=== PATIENT | male | born 1955 | race Caucasian/White ===

== ENCOUNTER 2018-09-20 11:17 | Outpatient (CLI) | payer MEDICARE, MEDICAID ==
--- NOTE | 2018-09-20 15:01 | MRI ---
FCervical spine MRI without contrast: 09/20/2018 COMPARISON: None HISTORY: Chronic neck pain with headaches, radiculopathy, cervical stenosis TECHNIQUE: Multiplanar multisequence MR imaging of the cervical spine obtained without contrast. FINDINGS: The sagittal STIR imaging demonstrates no focal area of osseous marrow edema. The C1 ring and the occipital condyles are fused. There is mild associated degenerative change involv ing the atlantoaxial interspace. C2-3: There is mild disc space narrowing and disc desiccation. Posterior osteophyte noted in the left paracentral region. No associated central canal stenosis. Bilateral facet and uncovertebral osteophy te formation noted, left greater than right. Mild bilateral neural foraminal stenosis, left greater t abdul right. C3-4: There is disc space narrowing with disc desiccation and disc bulge partially effacing the ventr al thecal sac. There is associated posterior osteophyte. A mild/moderate degree of associated central canal stenosis. Prominent bilateral facet and uncovertebral osteophyte formation, left greater than right, with moderate/severe right and severe left neural foraminal stenosis. C4-5: There is disc space narrowing, disc desiccation, and disc osteophyte complex effacing the ventr al thecal sac and abutting the ventral aspect of the cord with a moderate/severe degree of central ca nal stenosis. There is bilateral facet and uncovertebral osteophyte formation with severe left and mo derate/severe right neural foraminal stenosis. C5-6: There is disc space narrowing and disc desiccation with mild disc bulge and mild central canal stenosis. Prominent facet and uncovertebral osteophyte formation noted bilaterally with moderate righ t and severe left neural foraminal stenosis. C6-7: Disc desiccation and disc bulge/posterior osteophyte with effacement of ventral thecal sac and mild central canal stenosis. Facet and uncovertebral osteophyte formation noted bilaterally with mode rate right and severe left neural foraminal stenosis. C7-T1: Anterolisthesis measures 4 mm. Disc space narrowing and disc desiccation with mild disc bulge. Bilateral facet and uncovertebral osteophyte formation. Mild right and severe left neural foraminal stenosis. No focal area of abnormal signal intensity is identified within the cervical cord. IMPRESSION: Severe degenerative changes of the cervical spine as detailed above.
== END 2018-09-20 11:18 | disposition home or self-care (01) ==
LOC: SCSMRI 11:17
PROVIDERS: ATTEND Orthopaedic Surgery Hand Surgery
DX: M48.02 Spinal stenosis, cervical region (principal); M47.22 Other spondylosis with radiculopathy, cervical region
CPT/HCPCS: 72141

== ENCOUNTER 2019-03-20 17:56 | Inpatient (IN) | payer MEDICARE, MEDICAID ==
[2019-03-20 19:01] LABS: #Basophils 0.1 thou/uL (0.0-0.2); #Eosinphils 0.3 thou/uL (0.0-0.7); #Lymphocytes 2.1 thou/uL (1.20-3.40); #Monocytes 0.7 thou/uL (0.11-0.59); #Neutrophils 6.5 thou/uL (1.40-6.50); %Basophils 0.8 % (0.0-1.0); %Eosinophils 3.3 % (0.0-10.0); Hemoglobin 11.5 g/dL (14.0-18.0); Mean Corpuscular Volume 94.1 fL (78.0-98.0); Mean Platelet Volume 8.6 fL (7.4-10.4); Platelet Count 247 thou/uL (130-400); RBC Distribution Width 11.3 % (11.5-14.5); Red Blood Cell (RBC) Count 3.59 mill/uL (4.70-6.10); White Blood Cell (WBC) Count 9.7 thou/uL (4.8-10.8)
--- NOTE | 2019-03-20 19:11 | CT ---
CT BRAIN NONCONTRAST: DATE: 03/20/2019 HISTORY: 64-year-old male with headache, dizziness, and generalized weakness. FINDINGS: There is no evidence of acute intra-axial or extra-axial hemorrhage. There is no midline shift or any other mass effect. There is no extra-axial fluid collection. There is no evidence of obstructive hydrocephalus. Calvarium is intact. IMPRESSION: No acute intracranial findings.
[2019-03-20] MEDS ORDERED: Ketorolac Tromethamine 30 MG/ML VIAL ONE (19:15)
[2019-03-20] MEDS ORDERED: Metoclopramide HCl 10 MG/2 ML VIAL ONE (19:15)
[2019-03-20] MEDS ORDERED: diphenhydrAMINE 50 MG/ML VIAL ONE (19:15)
[2019-03-20 19:22] LABS: ALT (SGPT) 11 U/L (8-55); AST (SGOT) 12 U/L (5-34); Albumin 3.9 g/dL (3.4-4.8); Alkaline Phosphatase 69 U/L (40-110); Anion Gap 13 mmol/L (10-20); BUN (Urea Nitrogen) 39 mg/dL (8.4-25.7); Bilirubin, Total 0.4 mg/dL (0.2-1.2); Calc. Creatinine Clearance 0 mL/min (70-130); Calcium 8.8 mg/dL (7.8-10.44); Carbon Dioxide 22 mmol/L (23-31); Chloride 107 mmol/L (98-107); Estimated GFR-MDRD 23; Globulin 3.1 g/dL (2.4-3.5); Glucose 268 mg/dL (80-115); Potassium 5.1 mmol/L (3.5-5.1); Sodium 137 mmol/L (136-145)
[2019-03-20] MEDS ORDERED: Diazepam 10 MG/2 ML SYRINGE ONE (20:34)
[2019-03-20 23:08] LABS: Bacteria/HPF None Seen HPF (None Seen); Bilirubin Negative (Negative); Blood, Urine Negative (Negative); Clarity Clear (Clear); Glucose, Urine (Dipstick) Greater than 1000 mg/dL (Negative); Leukocyte Negative Leu/uL (Negative); Nitrite Negative (Negative); Protein, Urine (Dipstick) 30 mg/dL (Neg-Trace); RBC/HPF 0-3 HPF (0-3); Squamous Epithelial None Seen HPF (0-3); Urobilinogen Normal mg/dL (Less than 2); WBC/HPF 0-3 HPF (0-3)
[2019-03-21] MEDS ORDERED: Ondansetron ODT 4 MG TAB SL PRN (00:08)
[2019-03-21] MEDS ORDERED: Ondansetron PF 4 MG/2 ML Vial IVP PRN ×2 (00:08→04:11)
[2019-03-21] MEDS ORDERED: hydrALAZINE 20 MG/ML VIAL SLOW IVP PRN (01:00)
[2019-03-21] MEDS ORDERED: Acetaminophen 325 MG TAB PO PRN (04:11)
[2019-03-21] MEDS ORDERED: Acetaminophen 650 MG Suppository PR PRN (04:11)
[2019-03-21] MEDS ORDERED: Senokot S 8.6-50 MG TAB PO PRN (04:11)
[2019-03-21] MEDS ORDERED: Ondansetron ODT 4 MG TAB PO PRN (04:11)
[2019-03-21] MEDS ORDERED: HumaLOG 300 UNITS/3 ML VIAL SC PRN ×2 (04:30)
[2019-03-21] MEDS ORDERED: Dextrose 50% Abboject 50 ML SYRINGE SLOW IVP PRN (04:30)
[2019-03-21] MEDS ORDERED: Dextrose 5% in Water 1,000 ML IV PRN (04:30)
[2019-03-21] MEDS: Sodium Chloride 0.9% 1,000 ML IV SCH (04:47)
[2019-03-21 05:08] LABS: Amphetamine Not Detected (NotDetected); Barbiturates Screen Not Detected (NotDetected); Benzodiazepine Screen Not Detected (NotDetected); Cocaine Metabolite Screen Not Detected (NotDetected); Medtox Control Line Valid? VALID (VALID); Medtox Reader # READER 4; Methadone Not Detected (NotDetected); Methamphetamine Not Detected (NotDetected); Opiate Screen Not Detected (NotDetected); Oxycodone Screen Not Detected (NotDetected); Phencyclidine (PCP) Not Detected (NotDetected); THC/Cannabinoid Screen Not Detected (NotDetected); Tricyclic Screen Not Detected (NotDetected)
[2019-03-21 05:23] LABS: #Basophils 0.1 thou/uL (0.0-0.2); #Eosinphils 0.3 thou/uL (0.0-0.7); #Lymphocytes 2.5 thou/uL (1.20-3.40); #Monocytes 0.7 thou/uL (0.11-0.59); #Neutrophils 4.3 thou/uL (1.40-6.50); %Eosinophils 4.4 % (0.0-10.0); %Lymphocytes 31.8 % (21.0-51.0); %Monocytes 8.5 % (0.0-10.0); %Neutrophils 54.4 % (42.0-75.0); Hemoglobin 11.4 g/dL (14.0-18.0); Mean Corpuscular HGB CONC 33.5 g/dL (32.0-36.0); Mean Corpuscular Hemoglobin 32.4 pg (27.0-31.0); Mean Corpuscular Volume 96.6 fL (78.0-98.0); Mean Platelet Volume 8.2 fL (7.4-10.4); Platelet Count 229 thou/uL (130-400); RBC Distribution Width 11.2 % (11.5-14.5); Red Blood Cell (RBC) Count 3.53 mill/uL (4.70-6.10)
--- NOTE | 2019-03-21 05:25 | HP ---
PRIMARY CARE PHYSICIAN: Cipriano Haque MD CHIEF COMPLAINT: Dizziness. HISTORY OF PRESENT ILLNESS: Mr. Kingsley is a pleasant 64-year-old gentleman, who presented to the emergency department yesterday due to complaints of dizziness. The patient states he was making lunch when it came on suddenly. He reports feeling a "spinning sensation." The patient states he has had long issues with chronic neck pain due to cervical spine degenerative disk disease. The patient states he has never experienced any dizziness before. He reports having headache to the right side of his head with some blurred vision. He apparently had difficulty walking due to the dizziness and had to lower himself to the ground. He was able to get himself to bed and fell asleep. He continued to have dizziness and difficulty walking when he woke, which prompted him to come in to the emergency department. Denies having any associated chest pain, palpitations or shortness of breath. His neck pain has not been worse than usual. He denies having any recent falls or injuries. In the emergency department, he was given Reglan, Benadryl and Toradol. He is given 1 L of normal saline and also 5 mg of Valium IV. Investigations included laboratory studies, which were notable for a low hemoglobin of 11.5, no previous labs on file to compare to. He had evidence of renal failure. Unclear if any acute exacerbation as we do not have any previous to compare to. The patient states he does have a known history of chronic kidney disease. BUN was 39, creatinine was 2.75, and GFR was 23. His glucose was elevated at 268. LFTs unremarkable. Alkaline phosphatase 69. Urinalysis was done, which showed 30 of protein and greater than 1000 glucose, otherwise unremarkable. Imaging was obtained with a CT of the brain, which showed no acute intracranial findings. PAST MEDICAL HISTORY: 1. Chronic neck pain. 2. Cervical spine degenerative disk disease. 3. Hypertension. 4. Diabetes mellitus. 5. Neuropathy. 6. Carpal tunnel. 7. COPD. PAST SURGICAL HISTORY: Left arm surgery. SOCIAL HISTORY: The patient denies any alcohol consumption, tobacco use or illicit drug use. ALLERGIES: NO KNOWN DRUG ALLERGIES. CURRENT MEDICATIONS: Metoprolol tartrate. To be confirmed. PHYSICAL EXAMINATION: GENERAL: The patient is found resting comfortably in bed. He is in no acute distress. VITAL SIGNS: Temperature 97.8, pulse 63, respirations 16, O2 sat 99% on room air, and blood pressure 186/82. HEENT: Normocephalic and atraumatic. Pupils are equal, round, and reactive to light. Extraocular movements intact. No blurred vision. Oropharynx is clear. NECK: Supple. LUNGS: Clear to auscultation bilaterally. CARDIAC: Regular rate and rhythm. ABDOMEN: Soft, nontender, and nondistended. Normoactive bowel sounds present. EXTREMITIES: No lower leg swelling or edema. NEUROLOGIC: Alert and oriented x3. Speech normal. Facial movements normal. Facial sensation intact. No neuro deficits on exam. INVESTIGATIONS: As mentioned above in HPI. IMPRESSION AND PLAN: Mr. Kingsley is a very pleasant 64-year-old gentleman, who has been referred for management of the following. 1. Sudden-onset dizziness. Symptoms have resolved. CT of the brain unremarkable. Due to underlying renal failure, unable to obtain a CT angiogram of the head and neck. We will obtain carotid Dopplers and an MRI of the brain. The patient had no slurred speech, but did have what sounds like ataxia and true dizziness. This has resolved. We will continue to monitor. We will consult Neurology. The patient is without any history of previous strokes. Orthostatic BPs requested. Urine drug screen requested as well. We will also obtain echo. 2. Chronic neck pain. The patient has degenerative cervical spine disease. Scheduled to undergo MRI of the cervical spine. The ER physician has also consulted Neurosurgery. MRI of cervical spine done in September 2018 showed severe degenerative changes of the cervical spine. 3. Renal failure. Unclear if at baseline or with acute exacerbation of chronic kidney disease. We will give IV fluids. Continue to monitor renal function. 4. Hypertension. The patient with elevated blood pressure of 186/82 on arrival to the floor, therefore, given a dose of hydralazine. Blood pressure under control at present. Continue to monitor. Resume home medications once verified. 5. Diabetes mellitus. Resume home medications once verified. For now, we will cover with insulin sliding scale and monitor glucose. 6. Code status full. His surrogate decision maker is his mother, Mari Sharma. 7. Gastrointestinal prophylaxis with famotidine. 8. Deep venous thrombosis prophylaxis with mechanical SCDs. The patient's case to be discussed with attending for further recommendations. Job ID: [id number]
[2019-03-21 05:46] LABS: Anion Gap 13 mmol/L (10-20); BUN (Urea Nitrogen) 36 mg/dL (8.4-25.7); Calc. Creatinine Clearance 39 mL/min (70-130); Calcium 8.5 mg/dL (7.8-10.44); Carbon Dioxide 18 mmol/L (23-31); Chloride 113 mmol/L (98-107); Estimated GFR-MDRD 28; Glucose 137 mg/dL (80-115); Potassium 4.6 mmol/L (3.5-5.1); Sodium 139 mmol/L (136-145)
[2019-03-21 07:03] VITALS: BMI 26.2
[2019-03-21] MEDS ORDERED: Metoprolol Tartrate 25 MG TAB PO SCH (09:00)
[2019-03-21] MEDS: Famotidine/PF 20 mg/2ml Vial SLOW IVP SCH ×2 (09:20→22:00)
--- NOTE | 2019-03-21 12:51 | MRI ---
MRI Brain WO Con: 03/21/2019 4:04 AM CLINICAL HISTORY: Headache and dizziness with generalized weakness. COMPARISON: Head CT previous day FINDINGS: Extra axial spaces: Normal in size and morphology for the patient's age. Acute infarction: None. Ventricular system: Normal in size and morphology for the patient's age. Basal cisterns: Normal. Cerebral parenchyma: Microvascular ischemic changes. Midline shift: None. Cerebellum: Normal. Brainstem: Normal. Paranasal sinuses:Scattered mucosal thickening. IMPRESSION:No acute intracranial abnormality.
--- NOTE | 2019-03-21 13:01 | MRI ---
MRI Cervical spine without contrast: HISTORY: Headache and dizziness COMPARISON: 09/20/2018 FINDINGS: The craniocervical junction is maintained. No significant cord signal abnormality. C1-2:No significant stenosis. C2-3:Left asymmetric disc osteophyte results in mild left foraminal narrowing. Slight effacement of v entral thecal sac. No high-grade right foraminal stenosis. C3-4:Broad-based disc osteophyte with moderate central canal stenosis and associated cord flattening. There is bilateral uncinate process and facet hypertrophy with severe left and moderate to severe right neural foraminal stenosis. C4-5:Broad-based disc osteophyte results in moderate to severe central canal stenosis and moderate co rd compression. There is bilateral uncinate process and facet hypertrophy with severe left and moderate to severe right neural foraminal stenosis. C5-6:Broad-based left asymmetric disc osteophyte with moderate to severe central canal stenosis and m oderate cord compression. There is bilateral uncinate process, left greater than right, and bilateral facet hypertrophy with severe left and moderate to severe right neural frontal stenosis. C6-7: Left asymmetric broad-based disc osteophyte with moderate central canal stenosis and ventral co rd effacement more notable to the left of midline. There is bilateral uncinate process and facet hypertrophy with severe left and moderate right neural foraminal stenosis. C7-T1:Grade 1 spondylolisthesis with associated disc osteophyte complex producing mild central canal stenosis. There is mild bilateral neural foraminal stenosis. Bilateral facet osteophytes is present left greater than right, moderate in degree. IMPRESSION: Redemonstration of severe multilevel cervical spine degenerative change, as outlined above.
--- NOTE | 2019-03-21 18:09 | ULT ---
CAROTID DOPPLER 03/21/19 PROVIDED CLINICAL HISTORY: TIA. FINDINGS: Rcystal scale and color Doppler sonography with spectral analysis was performed of the extracranial car otid system bilaterally. There is no evidence for a hemodynamically significant internal carotid ta ry stenosis by peak systolic velocity or ratio criteria. Antegrade flow is seen in the right vertebra l artery. The left vertebral artery is not visualized. IMPRESSION: No sonographic evidence for a hemodynamically significant internal carotid artery stenosis. POS: MARGARITO
--- NOTE | 2019-03-21 18:59 | PDOC.HOSPP ---
- Subjective Encounter Date: 03/21/19 Encounter Time: 18:30 Subjective: f/u for weakness, dizziness and difficulty ambulating. Work up negative currently except for spinal DJD on imaging. - Objective Vital Signs & Weight: Vital Signs (12 hours) Temp Pulse Resp BP Pulse Ox 03/21/19 15:51 98.2 F 52 L 17 151/72 H 94 L 03/21/19 11:11 97.8 F 56 L 20 163/72 H 100 Weight Admit Weight 199 lb 3.2 oz Weight 199 lb 3.2 oz I&O: 03/20/19 03/21/19 03/22/19 06:59 06:59 06:59 Intake Total 480 Output Total 375 550 Balance -375 -70 Result Diagrams: 03/21/19 05:16 03/21/19 05:16 Additional Labs: Accuchecks 03/21/19 03/21/19 03/21/19 17:03 11:16 04:06 POC Glucose 159 H 127 H 134 H Laboratory Tests 03/20/19 03/20/19 03/21/19 18:52 18:52 05:16 Hgb 11.5 L BUN 39 H Creatinine 2.75 H B-Natriuretic Peptide 48.7 Radiology Reviewed by me: Yes (MRI brain - neg, Carotid sono - neg) EKG Reviewed by me: Yes (Tele - SR) Hospitalist ROS - Medication Medications: Active Medications Generic Name Dose Route Start Last Admin Trade Name Freq PRN Reason Stop Dose Admin Famotidine 20 mg 03/21/19 09:00 03/21/19 09:20 Pepcid SLOW IVP 20 mg Q12HR JOSEPH Administration Sodium Chloride 1,000 mls @ 75 mls/hr 03/21/19 04:15 03/21/19 04:47 Normal Saline 0.9% IV 1,000 mls .[id number] JOSEPH Administration Metoprolol Tartrate 25 mg 03/21/19 09:00 03/21/19 09:20 Lopressor PO 25 mg DAILY JOSEPH Administration - Exam General Appearance: NAD, awake alert Eye: PERRL, anicteric sclera ENT: normocephalic atraumatic, no oropharyngeal lesions Neck: supple, symmetric, no JVD, no thyromegaly Heart: RRR, no murmur, no gallops, no rubs, normal peripheral pulses Respiratory: CTAB, no wheezes, no rales, no ronchi, normal chest expansion Gastrointestinal: soft, non-tender, non-distended, normal bowel sounds, no palpable masses Extremities: no cyanosis, no clubbing, no edema Skin: normal turgor, no lesions Neurological: cranial nerve grossly intact, no new deficit Musculoskeletal: normal tone Musculoskeletal - other findings: muscle atrophy of thenar eminence bilat Psychiatric: normal affect, A&O x 3 Hosp A/P (1) Vertigo Code(s): R42 - DIZZINESS AND GIDDINESS Status: Acute Plan: Likely positional vertigo, consider trial of Meclizine, IVF's (2) DM II (diabetes mellitus, type II), controlled Code(s): E11.9 - TYPE 2 DIABETES MELLITUS WITHOUT COMPLICATIONS Status: Chronic Plan: ISS, serial accuchecks (3) TANISHA (acute kidney injury) Code(s): N17.9 - ACUTE KIDNEY FAILURE, UNSPECIFIED Status: Acute Plan: Improved, avoid nephrotoxic meds and limit contrast exposure (4) CKD (chronic kidney disease) stage 4, GFR 15-29 ml/min Code(s): N18.4 - CHRONIC KIDNEY DISEASE, STAGE 4 (SEVERE) Status: Chronic (5) Cervical spinal stenosis Code(s): M48.02 - SPINAL STENOSIS, CERVICAL REGION Status: Chronic Plan: Outpt followup with Neurosurgery for evaluation (6) HTN (hypertension) Code(s): I10 - ESSENTIAL (PRIMARY) HYPERTENSION Status: Chronic Qualifiers: Hypertension type: essential hypertension Qualified Code(s): I10 - Essential (primary) hypertension Plan: Continue Metoprolol 25mg daily - Plan PT/OT, out of bed/ambulate, DVT proph w/SCDs Stable currently Continue IVF's another 24h OOB with PT Outpt follow up with Neurosurgery AM lab: BMP, CBC, Lipids Likely home in am
--- NOTE | 2019-03-21 23:19 | CON ---
DATE OF CONSULTATION: 03/21/2019 CONSULTING PHYSICIAN: Hospitalist Service. IMPRESSION: 1. Atypical episode of hemicranial tingling and burning with transient dizziness of uncertain etiology. 2. Hypertension. 3. Cervical spinal stenosis without evidence of myelopathy on exam. 4. Peripheral neuropathy with diffuse distal atrophy. PLAN: 1. Carotid ultrasound. 2. Aspirin 81 mg per day. 3. Neurosurgical opinion on his cervical spine. HISTORY OF PRESENT ILLNESS: Mr. Patel is a 64-year-old man, who came in after having a repeated episode of right hemicranial tingling and burning. Initial episode lasted a few minutes and he went and laid down and took a nap. When he awoke, the symptoms were gone. He got up to let his dog out and was walking through the den when he started feeling the sensation again. As he was walking to the house, he started to feel somewhat dizzy. He went down on all fours and crawled to his bedroom. He did not have any nausea or vomiting. He felt like both of his legs were a bit weak. He made it to the bedroom and asked his girlfriend to call for help. He was brought into the hospital for evaluation. His workup initially has included an MRI of the brain, which showed a very minimal amount of periventricular white matter changes without any evidence of an acute ischemic event. He was a bit hypertensive on arrival, but he has been afebrile. His tox screen was negative. His initial CT scan of the brain did not show any evidence of a bleed. He has had a repeat MRI of the cervical spine, which shows multilevel central canal stenosis without any evidence of myelomalacia. He continues to complain of feeling like his left leg is different than it used to be. He has a past history of lumbar spinal disease as well. He is not reporting any radicular pain. He has been seen by Dr. Haque and had nerve conduction studies. He was told that he had significant peripheral nerve problems. The details are not available. PAST MEDICAL HISTORY: Hypertension. ALLERGIES: NONE. SOCIAL HISTORY: Unremarkable. FAMILY HISTORY: Noncontributory. REVIEW OF SYSTEMS: Ten-system review of systems is otherwise unremarkable. PHYSICAL EXAMINATION: VITAL SIGNS: Have been stable, although he has been a bit hypertensive. GENERAL: He is a thin, middle-aged man, sitting up in the bed, in no acute distress. HEENT: Pupils are equal. Conjunctivae clear. Oropharynx clear. Cranium normocephalic and atraumatic. NECK: No lymphadenopathy. EXTREMITIES: No cyanosis or edema. There is peripheral atrophy especially in the intrinsic muscles of the hands. NEUROLOGIC: He is alert and cooperative. His speech is fluent and clear. Cranial nerves 2 through 12 are intact. Motor exam showed good strength proximally without any lateralization. He had distal weakness of the intrinsic hand muscles. Sensation was decreased in a stocking-glove distribution. Reflexes were absent in the legs. He had 1+ reflexes in the upper extremities. Plantar responses were mute. He could sit and stand independently. Echocardiogram is pending. IMAGING STUDIES: Carotid ultrasound is pending. EKG shows normal sinus rhythm. SUMMARY: This is a middle-age man, who presented with a very unusual symptoms. It is possible he could have unusual basilar TIA without evidence of ischemic damage. I would go ahead and cover him with antiplatelet therapy and complete his stroke workup. Job ID: [id number]
[2019-03-22] MEDS: Sodium Chloride 0.9% 1,000 ML IV SCH ×3 (01:38→22:06)
[2019-03-22 06:03] LABS: #Basophils 0.1 thou/uL (0.0-0.2); #Eosinphils 0.4 thou/uL (0.0-0.7); #Lymphocytes 1.7 thou/uL (1.20-3.40); #Monocytes 0.6 thou/uL (0.11-0.59); #Neutrophils 4.7 thou/uL (1.40-6.50); %Basophils 0.8 % (0.0-1.0); %Eosinophils 5.2 % (0.0-10.0); %Lymphocytes 22.9 % (21.0-51.0); %Monocytes 7.5 % (0.0-10.0); %Neutrophils 63.6 % (42.0-75.0); Hemoglobin 11.5 g/dL (14.0-18.0); Mean Corpuscular HGB CONC 34.3 g/dL (32.0-36.0); Mean Corpuscular Hemoglobin 32.8 pg (27.0-31.0); Mean Corpuscular Volume 95.8 fL (78.0-98.0); Mean Platelet Volume 8.6 fL (7.4-10.4); Platelet Count 233 thou/uL (130-400); RBC Distribution Width 11.3 % (11.5-14.5); Red Blood Cell (RBC) Count 3.49 mill/uL (4.70-6.10); White Blood Cell (WBC) Count 7.3 thou/uL (4.8-10.8)
[2019-03-22 06:22] LABS: Anion Gap 10 mmol/L (10-20); BUN (Urea Nitrogen) 28 mg/dL (8.4-25.7); Calc. Creatinine Clearance 44 mL/min (70-130); Calcium 8.4 mg/dL (7.8-10.44); Carbon Dioxide 25 mmol/L (23-31); Cardiac Risk 7.1 (Less than 4.5); Chloride 108 mmol/L (98-107); Cholesterol 184 mg/dl (< 200 Desired); Estimated GFR-MDRD 32; Glucose 211 mg/dL (80-115); HDL Cholesterol 26 mg/dL (>60 Neg Risk); LDL Cholesterol, Calculated 119 mg/dL; Potassium 4.7 mmol/L (3.5-5.1); Sodium 138 mmol/L (136-145); Triglycerides 196 mg/dL (Less than 150)
--- NOTE | 2019-03-22 08:39 | PDOC.HOSPP ---
- Subjective Encounter Date: 03/22/19 Encounter Time: 08:20 Subjective: f/u for dizziness, orthostatic hypotension with negative stroke workup. Feels ok overall but was noted orthostatic this am. No other new complaints. - Objective Vital Signs & Weight: Vital Signs (12 hours) Temp Pulse Resp BP BP BP Pulse Ox 03/22/19 08:17 97.8 F 59 L 16 154/86 H 132/86 170/85 H 98 03/22/19 04:14 97.7 F 61 12 153/90 H 97 Weight Admit Weight 199 lb 3.2 oz Weight 199 lb 3.2 oz I&O: 03/21/19 03/22/19 03/23/19 06:59 06:59 06:59 Intake Total 600 Output Total 375 550 Balance -375 50 Result Diagrams: 03/22/19 05:27 03/22/19 05:27 Additional Labs: Accuchecks 03/22/19 03/21/19 03/21/19 05:58 21:15 17:03 POC Glucose 213 H 169 H 159 H 03/21/19 11:16 POC Glucose 127 H Laboratory Tests 03/20/19 03/20/19 03/21/19 18:52 18:52 05:16 Hgb 11.5 L BUN 39 H Creatinine 2.75 H B-Natriuretic Peptide 48.7 Radiology Reviewed by me: Yes (Echo - EF 55%, diast dysfxn) EKG Reviewed by me: Yes (Tele - SR) Hospitalist ROS - Medication Medications: Active Medications Generic Name Dose Route Start Last Admin Trade Name Freq PRN Reason Stop Dose Admin Famotidine 20 mg 03/21/19 09:00 03/21/19 22:00 Pepcid SLOW IVP 20 mg Q12HR JOSEPH Administration Sodium Chloride 1,000 mls @ 75 mls/hr 03/21/19 04:15 03/22/19 01:38 Normal Saline 0.9% IV 1,000 mls .[id number] JOSEPH Administration - Exam General Appearance: NAD, awake alert Eye: PERRL, anicteric sclera ENT: normocephalic atraumatic, no oropharyngeal lesions Neck: supple, symmetric, no JVD, no thyromegaly, no lymphadenopathy Heart: RRR, no murmur, no gallops, no rubs, normal peripheral pulses Respiratory: CTAB, no wheezes, no rales, no ronchi, normal chest expansion Gastrointestinal: soft, non-tender, non-distended, normal bowel sounds, no palpable masses Extremities: no cyanosis, no clubbing, no edema Skin: normal turgor, no lesions Neurological: cranial nerve grossly intact, no new deficit Musculoskeletal: normal tone, normal strength Psychiatric: normal affect, A&O x 3 Hosp A/P (1) Vertigo Code(s): R42 - DIZZINESS AND GIDDINESS Status: Acute Plan: Likely component of orthostasis, decrease Metoprolol 12.5mg daily, add Hydralazine 10mg BID, continue low-volume IVF's (2) DM II (diabetes mellitus, type II), controlled Code(s): E11.9 - TYPE 2 DIABETES MELLITUS WITHOUT COMPLICATIONS Status: Chronic Plan: ISS, ADA (3) TANISHA (acute kidney injury) Code(s): N17.9 - ACUTE KIDNEY FAILURE, UNSPECIFIED Status: Acute Plan: Improved, continue low-volume IVF's, avoid nephrotoxic meds and limit contrast exposure (4) CKD (chronic kidney disease) stage 4, GFR 15-29 ml/min Code(s): N18.4 - CHRONIC KIDNEY DISEASE, STAGE 4 (SEVERE) Status: Chronic (5) Cervical spinal stenosis Code(s): M48.02 - SPINAL STENOSIS, CERVICAL REGION Status: Chronic Plan: Outpt follow up with Neurosurgery (6) HTN (hypertension) Code(s): I10 - ESSENTIAL (PRIMARY) HYPERTENSION Status: Chronic Qualifiers: Hypertension type: essential hypertension Qualified Code(s): I10 - Essential (primary) hypertension Plan: See #1 - Plan PT/OT, out of bed/ambulate, DVT proph w/SCDs Stable currently Continue IVF's another 24h OOB with PT Outpt follow up with Neurosurgery Decrease Metoprolol 12.5mg daily Add Hydralazine 10mg BID AM lab: BMP Likely home in am
[2019-03-22] MEDS: Famotidine/PF 20 mg/2ml Vial SLOW IVP SCH (09:19)
[2019-03-22] MEDS: Metoprolol Tartrate 25 MG TAB PO SCH (09:22)
[2019-03-22] MEDS: hydrALAZINE 10 MG TAB PO SCH ×2 (09:22→22:06)
[2019-03-22] MEDS ORDERED: Aspirin Chewable 81 MG TAB PO SCH (18:30)
[2019-03-23 06:02] LABS: Anion Gap 10 mmol/L (10-20); BUN (Urea Nitrogen) 27 mg/dL (8.4-25.7); Calc. Creatinine Clearance 49 mL/min (70-130); Calcium 8.1 mg/dL (7.8-10.44); Carbon Dioxide 22 mmol/L (23-31); Chloride 109 mmol/L (98-107); Estimated GFR-MDRD 36; Glucose 189 mg/dL (80-115); Potassium 4.4 mmol/L (3.5-5.1); Sodium 137 mmol/L (136-145)
[2019-03-23] MEDS ORDERED: Famotidine/PF 20 mg/2ml Vial SLOW IVP SCH (09:00)
[2019-03-23] MEDS ORDERED: Aspirin Chewable 81 MG TAB PO SCH (09:00)
[2019-03-23] MEDS: hydrALAZINE 10 MG TAB PO SCH (09:16)
[2019-03-23] MEDS: Metoprolol Tartrate 25 MG TAB PO SCH (09:17)
[2019-03-23] MEDS: Sodium Chloride 0.9% 1,000 ML IV SCH (09:31)
[2019-03-23 13:20] VITALS: BP 163/81; TEMP 98.2
--- NOTE | 2019-03-24 08:47 | DIS ---
DATE OF ADMISSION: 03/20/2019 DATE OF DISCHARGE: 03/23/2019 DISCHARGE DIAGNOSES: 1. Vertigo, multifactorial including orthostatic hypotension. 2. Orthostatic hypotension, improved. 3. Diabetes mellitus, type 2, labile. 4. Acute kidney injury on chronic kidney disease, stage 4, improved. 5. Cervical spinal stenosis, chronic. 6. Hypertension, stable. CONSULTATION: Dr. Fink with Neurology Service. PERTINENT LABORATORY AND X-RAY FINDINGS: Creatinine ranged between 1.89 to 2.75. Estimated GFR ranged between 23 to 36. BNP 49. Total cholesterol 184, triglycerides 196, HDL 26, LDL 119. CBC showed a hemoglobin of 11.5, hematocrit 33. Urine drug screen dated 03/20/2019, negative. CT of the brain without contrast dated 03/20/2019, showed no acute intracranial process. Cervical spine MRI dated 03/21/2019, showed severe multilevel cervical spine degenerative changes. MRI of the brain dated 03/21/2019, showed no acute intracranial process. Carotid Doppler study dated 03/21/2019, showed no hemodynamically significant stenosis. 2D transthoracic echocardiogram dated 03/21/2019, showed ejection fraction of 55% to 60%. Diastolic dysfunction. HOSPITAL COURSE: The patient was initially admitted after presenting with dizziness and chronic neck pain. The patient underwent extensive evaluation including neuro imaging, showing no acute intracranial process. The patient underwent general stroke protocol without evidence for CVA. The patient was evaluated by the Neurology Service with recommendations for enteric-coated aspirin 81 mg daily. The patient with known chronic cervical spinal stenosis with current recommendations for outpatient neurosurgical evaluation and planning for potential future surgery. The patient was noted with acute kidney injury during the hospital course, receiving IV fluids with overall improved renal function by the time of discharge. The patient was also noted with mild orthostatic changes with adjustment to his metoprolol dosing to 12.5 mg daily with the addition of hydralazine 10 mg b.i.d. The patient overall remained clinically stable, tolerating regular oral intake and ambulating without assistance or difficulty. I have examined the patient at the time of discharge and discussed followup instructions. The patient verbalized understanding and in agreement, ready for discharge on 03/23/2019. DISCHARGE MEDICATIONS: 1. Hydralazine 10 mg p.o. b.i.d. 2. Lopressor 12.5 mg p.o. daily. 3. Enteric-coated aspirin 81 mg p.o. daily. FOLLOWUP: The patient may follow up with Dr. Ciro Arriaga with Neurosurgical services. CONDITION ON DISCHARGE: Stable. ACTIVITY: Ad-sandy. DIET: ADA and heart healthy. CODE STATUS: Full. DISPOSITION: To home, 03/23/2019. Total time preparing and coordinating discharge, 32 minutes. Job ID: [id number]
--- NOTE | 2019-03-25 12:29 | EKG ---
Test Reason : WEAKNESS Blood Pressure : / mmHG Vent. Rate : 079 BPM Atrial Rate : 079 BPM P-R Int : 158 ms QRS Dur : 088 ms QT Int : 382 ms P-R-T Axes : 027 005 062 degrees QTc Int : 438 ms Normal sinus rhythm Normal ECG Confirmed by SUMANTH XIONG M.D. ([id number]), international editorial producer MICHELLE GALE ([id number]) on 03/25/2019 12:29:07 PM Referred By: INGA Confirmed By:SUMANTH XIONG M.D.
== END 2019-03-23 13:36 | disposition home or self-care (01) | DRG 149 ==
LOC: ERS 17:56 → T4-A 21:54 → 2SE 23:48 → 2SW 03-21 06:52 → 2SE 03-21 15:49
PROVIDERS: ADMIT Internal Medicine; ATTEND Internal Medicine
DX: R42 Dizziness and giddiness (principal); N17.9 Acute kidney failure, unspecified; N18.4 Chronic kidney disease, stage 4 (severe); I95.1 Orthostatic hypotension; E11.40 Type 2 diabetes mellitus with diabetic neuropathy, unspecified; G89.29 Other chronic pain; M50.30 Other cervical disc degeneration, unspecified cervical region; J44.9 Chronic obstructive pulmonary disease, unspecified; I12.9 Hypertensive chronic kidney disease with stage 1 through stage 4 chronic kidney disease, or unspecified chronic kidney disease; M48.02 Spinal stenosis, cervical region; Z79.4 Long term (current) use of insulin
CPT/HCPCS: 36415; 36416; 70450; 70551; 72141; 80048; 80053; 80061; 80306; 81003; 81015; 83880; 85025; 93005; 93306; 93880; 96361; 96365; 96375; J0360; J1200; J1885; J2765; J3360; S0028

== ENCOUNTER 2019-04-17 09:28 | Outpatient (CLI) | payer MEDICARE ==
--- NOTE | 2019-04-17 10:47 | CT ---
CT CERVICAL SPINE: 04/17/2019 HISTORY: Cervical spondylosis, upper extremity radiculopathy. COMPARISON: None. TECHNIQUE: Axial CT imaging at 2 mm intervals from the skull base through the lung apices without contrast. Suni nal and sagittal reformatted imaging obtained. FINDINGS: There is mild mucosal thickening involving the alveolar recess of the bilateral maxillary sinuses. Th e C1 ring/lateral masses of C1 are fused with the occipital condyles bilaterally. There is mild narrowing of the atlantoaxial interspace. Evaluation for central canal and/or neural foraminal stenos is is limited on routine CT exam. No significant anterolisthesis or retrolisthesis is appreciated. The imaged lung apices are unremarkable. C2-C3: There is disc space narrowing. Facet joint fusion noted bilaterally. No osseous cause of signi ficant central canal or neural foraminal stenosis. C3-C4: There is disc space narrowing and vacuum disc formation. There is significant bilateral facet and uncovertebral osteophyte formation. Mild posterior osteophyte formation. Moderate bilateral neural foraminal stenosis suspected, left greater than right. Mild central canal stenosis noted. C4-C5: There is disc space narrowing with degenerative endplate change and anterior osteophyte format ion. There is posterior osteophyte as well as bilateral facet and uncovertebral osteophyte formation with moderate/severe bilateral neural foraminal stenosis, left greater than right and proba ble at least mild central canal stenosis. C5-C6: There is disc space narrowing and degenerative endplate change. Bilateral facet and uncoverteb ral osteophyte formation noted with severe left and mild right neural foraminal stenosis. Probable at least mild central canal stenosis. C6-C7: There is disc space narrowing with degenerative endplate change as well as anterior and vehicle operator technician ior osteophyte. There is a focal area of calcification of the posterior longitudinal ligament in the left paracentral region. There is also posterior osteophyte in this region. These findings cause moderate right and severe left neural foraminal stenosis as well as at least moderate lateral central canal stenosis on the left. C7-T1: Bilateral facet hypertrophy. No osseous cause of significant central canal or neural foraminal stenosis. No acute osseous abnormality. No lytic or blastic bone lesion. IMPRESSION: Fusion the craniocervical junction and at the facet joints bilaterally at C2-C3. Multilevel degenerat gab change with associated areas of central canal and neural foraminal stenosis as documented above. Transcribed Date/Time: 04/17/2019 11:25 AM
== END 2019-04-17 09:29 | disposition home or self-care (01) ==
LOC: TBSIIMAG 09:28
PROVIDERS: ATTEND Surgery
DX: M47.12 Other spondylosis with myelopathy, cervical region (principal); M48.02 Spinal stenosis, cervical region; Z98.1 Arthrodesis status
CPT/HCPCS: 72125

== ENCOUNTER 2019-11-29 18:55 | Inpatient (IN) | payer MEDICARE, MEDICAID, OTHER ==
[2019-11-29] MEDS ORDERED: Ondansetron ODT 4 MG TAB SL PRN (21:23)
[2019-11-29] MEDS ORDERED: HumaLOG 300 UNITS/3 ML VIAL SC PRN (21:23)
[2019-11-29] MEDS ORDERED: Dextrose 5% in Water 1,000 ML IV PRN ×2 (21:23→21:43)
[2019-11-29] MEDS ORDERED: Dextrose 50% Abboject 50 ML SYRINGE IVP PRN (21:23)
[2019-11-29] MEDS ORDERED: Ondansetron PF 4 MG/2 ML Vial IVP PRN (21:23)
[2019-11-29] MEDS ORDERED: Dextrose 50% Abboject 50 ML SYRINGE SLOW IVP PRN (21:43)
--- NOTE | 2019-11-29 22:16 | PDOC.EVN ---
Event Note - Event Note Event Note: [id number] HP dictated
--- NOTE | 2019-11-29 22:47 | HP ---
CHIEF COMPLAINT: Cough and shortness of breath. HISTORY OF PRESENT ILLNESS: Mr. Kingsley is a 64-year-old male with past medical history of hypertension, diabetes mellitus, chronic kidney disease, ? COPD, presents to [facility] with cough and shortness of breath, fever for the last 3 days. No known sick contacts. No known exposure to TB or COVID. The patient states that he has a cat who sleeps in his bed has been sneezing a lot lately. The patient denies chest pain, abdominal pain, vomiting, or diarrhea. Workup in the emergency room, the patient was febrile with a temperature of 102.8, tachycardic with heart rate of 117. Lab work, [place] [address]. The patient has acute renal failure with a creatinine of 3.1. Glucose is elevated at 281. Lactic acid is 2. Request transfer the patient to our medical facility for further management. COVID swab was done. Septic workup including blood cultures also was done. The patient is started on IV antibiotics. The patient is being admitted to hospital for further management. PAST MEDICAL HISTORY: 1. Diabetes mellitus, type 2. 2. Chronic kidney disease, stage 4. 3. Cervical spinal stenosis. 4. Hypertension. 5. COPD? PAST SURGICAL HISTORY: Left arm surgery. FAMILY HISTORY: Reviewed and noncontributory. SOCIAL HISTORY: Denies drug use, alcohol use, or smoking history. ALLERGIES: NO KNOWN ALLERGIES. HOME MEDICATIONS: Please see home medication reconciliation form for updated medications. REVIEW OF SYSTEMS: Review of 14 systems negative except what is mentioned in history of present illness. PHYSICAL EXAMINATION: GENERAL: The patient is awake, alert, does not appear to be in acute distress. VITAL SIGNS: T-max was 102.8, pulse 115, blood pressure 176/71, oxygen saturation 96% on room air, respiratory rate is 18. HEAD AND NECK: Normocephalic and atraumatic. NECK: Supple. No JVD. CHEST: Decreased air entry bilaterally. HEART: S1, S2. Regular, tachycardic. ABDOMEN: Soft, nontender. Bowel sounds present. NEUROLOGIC: Awake, alert, oriented x3. PSYCH: Normal mood. EXTREMITIES: No clubbing, no cyanosis. GENITOURINARY: No suprapubic tenderness. No flank tenderness. DIAGNOSTIC DATA: Chest x-ray, no acute finding. LABORATORY DATA: Lab work as mentioned above in history of present illness. ASSESSMENT AND PLAN: 1. Sepsis. 2. Suspected COVID-19 infection. 3. Acute renal failure on chronic kidney disease. 4. Diabetes mellitus, hyperglycemia. 5. Hypertension. PLAN: 1. Admit. Septic workup including cultures and COVID-19 swab done in the ED. 2. Isolation precautions. 3. IV fluids. 4. Monitor kidney function and urine output. 5. We will continue with IV antibiotics for now. Cannot rule out bacterial infection at this point. 6. Reconcile home medications. 7. DVT prophylaxis as appropriate. 8. Expected length of stay, 2 midnights or more. Job ID: [id number]
[2019-11-29] MEDS: Acetaminophen 325 MG TAB PO PRN (23:23)
[2019-11-29] MEDS: Guaifenesin DM 100-10/5 ML UDCUP PO PRN (23:23)
[2019-11-29 23:42] LABS: Bacteria/HPF None Seen HPF (None Seen); Bilirubin Negative (Negative); Blood, Urine 1+ (Negative); Clarity Clear (Clear); Glucose, Urine (Dipstick) >=1000 mg/dL (Negative); Leukocyte Negative Leu/uL (Negative); Nitrite Negative (Negative); Protein, Urine (Dipstick) 100 mg/dL (Neg-Trace); Squamous Epithelial None Seen HPF (0-3); Urobilinogen Normal mg/dL (Less than 2); WBC/HPF 0-3 HPF (0-3)
[2019-11-30] MEDS: Sodium Chloride 0.9% 1,000 ML IV SCH ×3 (00:09→17:49)
[2019-11-30] MEDS: Acetaminophen 325 MG TAB PO PRN (05:13)
[2019-11-30] MEDS: Guaifenesin DM 100-10/5 ML UDCUP PO PRN ×3 (05:14→21:43)
[2019-11-30 05:53] LABS: #Lymphocytes 0.8 thou/uL (1.20-3.40); #Monocytes 1.6 thou/uL (0.11-0.59); %Basophils 0.1 % (0.0-1.0); %Eosinophils 0.3 % (0.0-10.0); %Lymphocytes 5.2 % (21.0-51.0); %Monocytes 10.2 % (0.0-10.0); %Neutrophils 84.2 % (42.0-75.0); Hemoglobin 10.7 g/dL (14.0-18.0); Mean Corpuscular HGB CONC 33.1 g/dL (32.0-36.0); Mean Corpuscular Hemoglobin 31.4 pg (27.0-31.0); Mean Corpuscular Volume 94.8 fL (78.0-98.0); Platelet Count 185 thou/uL (130-400); RBC Distribution Width 11.1 % (11.5-14.5); Red Blood Cell (RBC) Count 3.43 mill/uL (4.70-6.10); White Blood Cell (WBC) Count 15.5 thou/uL (4.8-10.8)
[2019-11-30 06:14] LABS: Anion Gap 13 mmol/L (10-20); BUN (Urea Nitrogen) 34 mg/dL (8.4-25.7); Calc. Creatinine Clearance 35 mL/min (70-130); Calcium 8.3 mg/dL (7.8-10.44); Carbon Dioxide 20 mmol/L (23-31); Chloride 108 mmol/L (98-107); Estimated GFR-MDRD 24; Glucose 223 mg/dL (80-115); Potassium 4.7 mmol/L (3.5-5.1); Sodium 136 mmol/L (136-145)
[2019-11-30] MEDS: Heparin 5,000 UNITS/ML VIAL SC SCH ×3 (08:22→21:26)
[2019-11-30] MEDS: Famotidine/PF 20 mg/2ml Vial SLOW IVP SCH (08:22)
[2019-11-30] MEDS ORDERED: Ondansetron PF 4 MG/2 ML Vial IVP PRN (13:00)
[2019-11-30] MEDS: Acetaminophen 500 MG TAB PO PRN (13:52)
--- NOTE | 2019-11-30 15:15 | PRG ---
DATE OF SERVICE: 11/30/2019 SUBJECTIVE: The patient is seen and examined at the bedside. He had some nausea and vomiting this morning. He had some abdominal discomfort located in the left part of the abdomen. He has some dry cough. His appetite is diminished. OBJECTIVE: VITAL SIGNS: Blood pressure is 137/71, temperature is 99.7, pulse is 113, respirations 16, O2 saturation 95% on room air. HEENT: His head is atraumatic and normocephalic. Eyes are PERRLA. Sclerae are nonicteric. Oral mucosa is moist. NECK: Supple. LUNGS: Few rales at both bases, similar bilaterally. No wheezing. HEART: S1 and S2 normal. Tachycardic. No S3. No S4. ABDOMEN: Soft, mildly obese, nontender. Bowel sounds are present. No organomegaly. EXTREMITIES: No clubbing, cyanosis, or edema. NEUROLOGIC: Intact. LABORATORY DATA: Shows white count of 15.5, hemoglobin 10.7, hematocrit 32.5, and platelet count is 185,000. Sodium of 136, potassium 4.7, chloride 108, CO2 of 20, BUN 34, creatinine 2.63, glucose is ranging from 200 to 261. Microbiology, blood cultures x2 negative. Influenza A and B, EIA final, negative. IMPRESSION: 1. Suspected sepsis, unclear source. 2. Suspected COVID-19 infection. 3. Acute renal failure on chronic kidney disease. 4. Diabetes mellitus. 5. Hypertension. PLAN: CT of the chest and abdomen without contrast. Continue IV fluids. ID consultation with Dr. Baker. Continue ceftriaxone and azithromycin. Continue diabetic coverage with Accu-Cheks a.c. and at bedtime, and DVT prophylaxis with heparin 5000 units 3 times a day. Job ID: [id number]
[2019-11-30] MEDS: Azithromycin 500 MG in Sodium Chloride 0.9% 250 ML 250 ML IVPB SCH (16:36)
[2019-11-30 17:29] LABS: SARS-CoV-2 MS2 Positive; SARS-CoV-2 N Gene Negative; SARS-CoV-2 S Gene Negative; SARS-CoV-2 orf1ab Negative
[2019-11-30] MEDS: Ibuprofen 200 MG TAB PO PRN (17:48)
[2019-11-30] MEDS: cefTRIAXone\\ROCEPHIN 1 GM in Sodium Chloride 0.9% 100 ML IVPB SCH (17:49)
--- NOTE | 2019-11-30 20:10 | CON ---
DATE OF CONSULTATION: 11/30/2019 REASON FOR CONSULTATION: Fever and cough. HISTORY OF PRESENT ILLNESS: A 64-year-old with history of type 2 diabetes, CKD stage 4, and hypertension, who lives in [place] with his girlfriend and developed abdominal pain and some cough and fever up to 102 with tachycardia. Initial findings; temperature 102.8, respirations 18, and O2 saturation 96. The exam was not particularly remarkable and chest x-ray with no evidence of acute cardiopulmonary disease. The white cell count was 15,000, hemoglobin 10, platelets 185, and 39% neutrophils. He is currently on azithromycin and Rocephin and has a COVID test pending. Still coughing intermittently and some headaches. No visual symptoms, sore throat, odynophagia, or dysphagia. No back pain. No sputum production. No dyspnea at the moment, but he did have some earlier. No abdominal pain anymore. Voiding without difficulty. No diarrhea. No joint symptoms. No neurological symptoms. PAST MEDICAL HISTORY: Type 2 diabetes, CKD, spinal stenosis, hypertension, and question of COPD. PAST SURGICAL HISTORY: Arm surgery. SOCIAL HISTORY: Retired. Lives in [place] with girlfriend. Never smoker. Quit drinking alcoholic beverages. ALLERGIES: NONE. MEDICATIONS: Currently on; 1. P.R.N. medications. 2. Azithromycin. 3. Rocephin. PHYSICAL EXAMINATION: VITAL SIGNS: T-max 101.5, BP 120/60, pulse 95, respirations 16, and O2 saturation 97. SKIN: No lymphadenopathy. Skin normal. HEENT: Ocular movements conjugate. Oral cavity not particularly remarkable. NECK: Supple. No jugular vein distention. LUNGS: Symmetric air entry. No obvious crackles or wheezing. HEART: S1 and S2. Regular rate. ABDOMEN: Soft, not distended or tender. No ascites. No bladder distention. EXTREMITIES: No joint inflammatory activity. Moves extremities equally. ASSESSMENT AND PLAN: Type 2 diabetes, chronic kidney disease, cough, and fever. At this point, we will wait for the COVID test results and then, go from there. If they are negative, then we will assume that he has a non-COVID respiratory infection, probably of bacterial nature. May consider then checking antigens for strep pneumonia and then a CT of chest. Thromboembolism appears to be less likely, malignancy also less likely, and autoimmune process not likely. Job ID: [id number]
[2019-11-30] MEDS ORDERED: Prevnar 13-Val Conj/PF 0.5 ML SYRINGE IM ONE (21:00)
[2019-12-01] MEDS: Guaifenesin DM 100-10/5 ML UDCUP PO PRN ×3 (03:20→20:58)
[2019-12-01] MEDS: Sodium Chloride 0.9% 1,000 ML IV SCH ×2 (03:22→14:16)
[2019-12-01 05:36] LABS: #Basophils 0.1 thou/uL (0.0-0.2); #Eosinphils 0.1 thou/uL (0.0-0.7); #Lymphocytes 0.6 thou/uL (1.20-3.40); #Monocytes 1.4 thou/uL (0.11-0.59); #Neutrophils 11.4 thou/uL (1.40-6.50); %Basophils 0.6 % (0.0-1.0); %Lymphocytes 4.2 % (21.0-51.0); %Monocytes 10.3 % (0.0-10.0); %Neutrophils 83.9 % (42.0-75.0); Hemoglobin 9.6 g/dL (14.0-18.0); Mean Corpuscular HGB CONC 32.7 g/dL (32.0-36.0); Mean Corpuscular Hemoglobin 31.4 pg (27.0-31.0); Mean Platelet Volume 8.7 fL (7.4-10.4); Platelet Count 173 thou/uL (130-400); RBC Distribution Width 11.2 % (11.5-14.5); Red Blood Cell (RBC) Count 3.05 mill/uL (4.70-6.10); White Blood Cell (WBC) Count 13.6 thou/uL (4.8-10.8)
[2019-12-01] MEDS: Acetaminophen 500 MG TAB PO PRN (05:46)
[2019-12-01] MEDS: Famotidine/PF 20 mg/2ml Vial SLOW IVP SCH (09:06)
[2019-12-01] MEDS: Heparin 5,000 UNITS/ML VIAL SC SCH ×2 (09:07→17:03)
--- NOTE | 2019-12-01 11:06 | CT ---
CT OF THE CHEST WITHOUT CONTRAST CT OF THE ABDOMEN AND PELVIS WITHOUT CONTRAST: HISTORY: Pneumonia and chest pain. Sepsis. TECHNIQUE: 1. Multiple contiguous axial images were obtained in a CT of the chest without contrast. Sagittal a nd coronal reformats were performed. 2. Multiple contiguous axial images were obtained in a CT of the abdomen and pelvis with contrast. Sagittal and coronal reformats were performed. FINDINGS: CT CHEST: There is consolidation in the majority of the left lower lobe and in the medial aspect of the left up per lobe. There is a calcified granuloma in the right lower lobe. A trace left pleural effusion is seen. No pneumothorax is present. The heart is normal in size. There is a small pericardial effusion. No hilar or mediastinal lymphad enopathy are appreciated on this limited noncontrast examination. Calcifications are seen in the cor onary arteries. The chest wall soft tissues are unremarkable. Degenerative changes are seen in the spine. CT ABDOMEN/PELVIS: The liver, gallbladder, kidneys, adrenal glands, and pancreas are unremarkable, although evaluation i s limited without IV contrast. Calcifications in the spleen are from prior granulomatous disease. The large and small bowel are unremarkable. No abdominal or pelvic lymphadenopathy are seen. Athero sclerotic calcifications are seen in the aorta. The abdominal wall soft tissues are unremarkable. Vasectomy clips are seen in the scrotum. IMPRESSION: 1. Left-sided pneumonia with a small left pleural effusion. 2. Small pericardial effusion. 3. No evidence of acute intraabdominal/pelvic abnormality. POS: EAA
[2019-12-01] MEDS: Ibuprofen 200 MG TAB PO PRN (12:46)
--- NOTE | 2019-12-01 14:33 | PRG ---
DATE OF SERVICE: 12/01/2019 SUBJECTIVE: Having shortness of breath at the moment, coughing intermittently, but no sputum production. A little bit of chest pain, which he describes anterior chest pain. It is not clear if it is respiratory related or not. No abdominal pain or diarrhea. No genitourinary symptoms. No neurological symptoms. OBJECTIVE: VITAL SIGNS: T-max 100.5, BP 120/65, pulse 108. O2 saturations were 89 and then went up to 96 with 2 L O2 nasal cannula. GENERAL: He is tachypneic at rest. Feels uncomfortable. LUNGS: Symmetric air entry. A few crackles on the right side. HEART: S1 and S2, regular rate. No wheezing. ABDOMEN: Soft. Not distended or tender. No ascites. No bladder distention. EXTREMITIES: Moves extremities equally. LABORATORY DATA: White cell count 13.6, hemoglobin 9.6, platelets 173, and 83% neutrophils. Creatinine was 2.63. He is currently on azithro and Rocephin. The CT of chest, abdomen, and pelvis shows a left lower lobe infiltrate. The abdomen is okay. ASSESSMENT AND DISCUSSION: Type 2 diabetes, chronic kidney disease, cough, fever. Negative COVID test. Lobar pneumonia, left lower lung. Strep pneumoniae is more likely pathogen. Legionella less likely. Other atypical pathogens, gram- negative rods less likely. Worsening dyspnea with chest pain. Continue Rocephin and azithromycin, O2 supplementation. Transfer to [facility]. Check troponin. Job ID: [id number] MTDD
[2019-12-01 15:05] LABS: Strep pneumo Urine Ag NEGATIVE (NEGATIVE)
[2019-12-01 15:29] LABS: CKMB 2.1 ng/mL (0-6.6)
[2019-12-01] MEDS ORDERED: Aspirin 325 MG TAB PO SCH (15:45)
--- NOTE | 2019-12-01 16:54 | CON ---
DATE OF CONSULTATION: REASON FOR CONSULTATION: Elevated troponin. PRIMARY OCEAN RESCUE LIEUTENANT: None. HISTORY OF PRESENT ILLNESS: Mr. Kingsley is a very pleasant 64-year-old gentleman from [place], [place]. He recently moved to the area. He recently presented with pneumonia. He has been COVID negative x2. He recently complained of chest pain. He has been coughing. He states it is more consistent with rib pain. The pain is much worse with cough. Given his continued pain, he was transferred to telemetry monitoring. He states he had oxygen placed with relief of symptoms. His troponin was mildly elevated at 0.3. His CK-MB is negative. He does have underlying renal insufficiency from diabetes. PAST MEDICAL HISTORY: 1. Hypertension. 2. COPD. 3. Diabetes mellitus. 4. Chronic kidney disease. 5. Arm surgery. SOCIAL HISTORY: No current tobacco or alcohol use. ALLERGIES: NONE. HOME MEDICATIONS: Include: 1. Januvia. 2. Lopressor. 3. Trulicity. REVIEW OF SYSTEMS: A 10-point review of systems is reviewed and as above, otherwise negative. PHYSICAL EXAMINATION: GENERAL: Patient is a pleasant gentleman who is in no acute distress. The patient appears their stated age. VITAL SIGNS: Blood pressure 130/63, pulse 98, respirations 20. NEUROLOGIC: The patient is alert and oriented x3 with no focal neurologic deficits. HEENT: Sclerae without icterus. Mouth has moist mucous membranes with normal pallor. NECK: No JVD. Carotid upstroke brisk. No bruits bilaterally. LUNGS: Clear to auscultation with unlabored respirations. BACK: No scoliosis or kyphosis. CARDIAC: Regular rate and rhythm with normal S1 and S2. No S3 or S4 noted. No significant rubs, murmurs, thrills, or gallops noted throughout the precordium. PMI is not displaced. There is no parasternal heave. ABDOMEN: Soft, nontender, nondistended. No peritoneal signs present. No hepatosplenomegaly. No abnormal striae. EXTREMITIES: 2+ femoral and 2+ dorsalis pedis pulses. No cyanosis, clubbing, or edema. SKIN: No gross abnormalities. PERTINENT LABORATORY DATA: Hemoglobin 9.6. Creatinine 2.62. GFR 63. EKG, normal sinus rhythm with no ST-T wave changes suggesting ischemia or infarction. IMPRESSION: 1. Elevated troponin. 2. Diabetes mellitus. 3. Hypertension. 4. Pneumonia. Mr. Kingsley's elevated troponin likely secondary to demand ischemia. He does have underlying diabetes and renal insufficiency. This is likely multifactorial from underlying diabetes in addition to recent sepsis with pneumonia. At this point, we will continue conservative therapy. He has not had his beta-ale restarted and would restart at this point. We would recommend one dose of Lovenox for now, but again increased troponin secondary to fever and increased heart rate. We will follow with you. Job ID: [id number]
--- NOTE | 2019-12-01 18:17 | PDOC.HOSPP ---
- Subjective Encounter Date: 12/01/19 Encounter Time: 18:16 Subjective: Pt seen for followup re: elevated troponin. c/o cough. c/o chest pain with cough. No nausea or vomiting. - Objective Vital Signs & Weight: Vital Signs (12 hours) Temp Pulse Resp BP BP Pulse Ox 12/01/19 16:00 99.2 F 97 15 133/64 95 12/01/19 15:00 100.6 F H 117 H 15 130/63 99 12/01/19 13:45 98 20 94 L 12/01/19 13:18 96 12/01/19 11:00 99.3 F 108 H 20 121/65 91 L 12/01/19 08:00 96 12/01/19 07:46 98.7 F 99 20 109/65 92 L Weight Weight 197 lb 14.4 oz I&O: 11/30/19 12/01/19 12/02/19 06:59 06:59 06:59 Intake Total 1480 4350 Output Total 875 1000 Balance 605 3350 Result Diagrams: 12/01/19 05:28 11/30/19 05:18 Additional Labs: Accuchecks 12/01/19 12/01/19 12/01/19 17:32 11:18 06:43 POC Glucose 219 H 240 H 169 H 11/30/19 21:25 POC Glucose 179 H Labs and MARs reviewed by me EKG Reviewed by me: Yes (Tele: NSR) Hospitalist ROS - Review of Systems Constitutional: denies: fever, chills, sweats, weakness, malaise Respiratory: reports: cough, dry, pleuritic pain. denies: shortness of breath, hemoptysis, SOB with excertion, sputum, wheezing Cardiovascular: denies: chest pain, palpitations, orthopnea, paroxysmal noc. dyspnea, edema, light headedness Gastrointestinal: denies: nausea, vomiting, abdominal pain, diarrhea, constipation, melena, hematochezia Genitourinary: denies: dysuria, frequency, incontinence, hematuria, retention - Medication Medications: Active Medications Generic Name Dose Route Start Last Admin Trade Name Freq PRN Reason Stop Dose Admin Acetaminophen 500 mg 11/30/19 12:49 12/01/19 05:46 Tylenol PO 500 mg Q6H PRN Administration Pain Albuterol/Ipratropium 3 ml 12/01/19 12:58 12/01/19 13:45 Duoneb NEB 3 ml Q6H PRN Administration SOB &/or Wheezing Famotidine 20 mg 11/30/19 09:00 12/01/19 09:06 Pepcid SLOW IVP 20 mg DAILY JOSEPH Administration Guaifenesin/Dextromethorphan 15 ml 11/29/19 21:48 12/01/19 12:45 Robitussin Dm PO 15 ml Q4H PRN Administration Cough Sodium Chloride 1,000 mls @ 100 mls/hr 11/29/19 22:00 12/01/19 14:16 Normal Saline 0.9% IV Not Given .Q10H JOSEPH Azithromycin 500 mg/ Sodium 250 mls @ 250 mls/hr 11/30/19 19:00 11/30/19 16: 36 Chloride IVPB 250 mls Q24HR JOSEPH Administration Ceftriaxone Sodium 1 gm/ 100 mls @ 200 mls/hr 11/30/19 18:00 11/30/19 17:49 Sodium Chloride IVPB 100 mls Q24HR JOSEPH Administration Ibuprofen 200 mg 11/30/19 17:03 12/01/19 12:46 Motrin PO 200 mg Q6H PRN Administration TEMP>100 Metoprolol Succinate 25 mg 12/01/19 16:30 12/01/19 16:45 Toprol Xl PO 12/01/19 18:30 25 mg NOW JOSEPH Administration Ondansetron HCl 4 mg 11/30/19 13:00 11/30/19 13:52 Zofran IVP 4 mg Q6H PRN Administration Nausea/Vomiting Sodium Chloride 10 ml 11/30/19 09:00 12/01/19 09:07 Flush - Normal Saline IVF Not Given Q12HR JOSEPH - Exam General Appearance: awake alert Eye: anicteric sclera ENT: moist mucosa Neck: supple, symmetric, no thyromegaly, no lymphadenopathy Heart: RRR, no gallops, no rubs, normal peripheral pulses Respiratory: no rales, normal chest expansion, wheezes Respiratory - other findings: L bronchial breathing Gastrointestinal: soft, non-tender, non-distended, normal bowel sounds Skin: no rashes Musculoskeletal: no muscle wasting Psychiatric: normal affect, normal behavior, oriented to person, oriented to place Hosp A/P (1) Pneumonia Code(s): J18.9 - PNEUMONIA, UNSPECIFIED ORGANISM Status: Acute (2) Sepsis Code(s): A41.9 - SEPSIS, UNSPECIFIED ORGANISM Status: Acute (3) Elevated troponin Code(s): R79.89 - OTHER SPECIFIED ABNORMAL FINDINGS OF BLOOD CHEMISTRY Status : Acute (4) DM II (diabetes mellitus, type II), controlled Code(s): E11.9 - TYPE 2 DIABETES MELLITUS WITHOUT COMPLICATIONS Status: Chronic (5) HTN (hypertension) Code(s): I10 - ESSENTIAL (PRIMARY) HYPERTENSION Status: Chronic Qualifiers: Hypertension type: essential hypertension Qualified Code(s): I10 - Essential (primary) hypertension - Plan CT result noted. COVID 19 ruled out. Continue ceftriaxone and azithromycin. Elevated troponin likely due to demand ischemia, continue to monitor and trend troponin. Start accuchecks and insulin sliding scale.
[2019-12-01] MEDS: cefTRIAXone\\ROCEPHIN 1 GM in Sodium Chloride 0.9% 100 ML IVPB SCH (18:24)
[2019-12-01 19:35] LABS: Troponin I 0.356 ng/mL (< 0.028)
[2019-12-01] MEDS: Azithromycin 500 MG in Sodium Chloride 0.9% 250 ML 250 ML IVPB SCH (20:57)
[2019-12-01] MEDS: Enoxaparin Sodium 80 MG/0.8 ML SYRINGE SC SCH (20:58)
[2019-12-01 23:07] LABS: Critical Call Chem Troponin I RESULT DECREASING; Troponin I 0.349 ng/mL (< 0.028)
[2019-12-02] MEDS: Sodium Chloride 0.9% 1,000 ML IV SCH ×3 (01:12→20:39)
[2019-12-02] MEDS: Guaifenesin DM 100-10/5 ML UDCUP PO PRN ×4 (03:41→20:31)
[2019-12-02] MEDS: Alogliptin 6.25 MG TAB PO SCH (08:57)
[2019-12-02] MEDS: Aspirin 325 mg Enteric Coated Tablet PO SCH (08:58)
[2019-12-02] MEDS: Famotidine/PF 20 mg/2ml Vial SLOW IVP SCH (08:58)
[2019-12-02 09:08] LABS: Hemoglobin 9.5 g/dL (14.0-18.0); Mean Corpuscular Hemoglobin 32.2 pg (27.0-31.0); Mean Corpuscular Volume 97.4 fL (78.0-98.0); Mean Platelet Volume 8.5 fL (7.4-10.4); Platelet Count 207 thou/uL (130-400); RBC Distribution Width 11.3 % (11.5-14.5); Red Blood Cell (RBC) Count 2.96 mill/uL (4.70-6.10); White Blood Cell (WBC) Count 12.7 thou/uL (4.8-10.8)
[2019-12-02 09:24] LABS: Anion Gap 14 mmol/L (10-20); BUN (Urea Nitrogen) 28 mg/dL (8.4-25.7); Calc. Creatinine Clearance 40 mL/min (70-130); Carbon Dioxide 17 mmol/L (23-31); Chloride 107 mmol/L (98-107); Estimated GFR-MDRD 28; Glucose 163 mg/dL (80-115); Potassium 4.4 mmol/L (3.5-5.1); Sodium 134 mmol/L (136-145)
[2019-12-02 09:59] LABS: Band 2 % (5-11); Eosinophils 2 % (0-10); Lymphocytes 13 % (21-51); MDiff Complete? YES; Monocytes 8 % (0-10); Neutrophil 75 % (42-75); Platelet Morphology Comment Appears Adequate
[2019-12-02] MEDS: Ibuprofen 200 MG TAB PO PRN (12:40)
[2019-12-02] MEDS: HumaLOG 300 UNITS/3 ML VIAL SC PRN (12:41)
--- NOTE | 2019-12-02 15:53 | PRG ---
DATE OF SERVICE: 12/02/2019 SUBJECTIVE: Transferred to the [facility]. He is feeling better, still coughing intermittently. Chest pain is easing up. No abdominal pain or diarrhea. No genitourinary symptoms. OBJECTIVE: VITAL SIGNS: T-max 100.7 just recently, blood pressure 170/82, pulse 104, respirations 18 to 22, O2 saturation 95% on 2 L. GENERAL: Awake and alert. LUNGS: Fairly symmetric breath sounds. HEART: S1 and S2. Regular rate. ABDOMEN: Soft, not distended. EXTREMITIES: Moves extremities equally. LABORATORY DATA: White cell count 12.7, hemoglobin 9.5, platelets 207, neutrophil percentage down to 75. Creatinine 2.35, which has somewhat improved. Troponin was high at 0.349. Strep pneumoniae antigen negative. Blood cultures, no growth. Influenza negative. Dr. Ritchie has seen the patient and felt that it was probably a demand ischemia. He is currently on Rocephin and azithromycin, alogliptin, aspirin, and he has a dose of enoxaparin. ASSESSMENT AND DISCUSSION: Type 2 diabetes, chronic kidney disease, cough, fever, community-acquired pneumonia, COVID test negative, demand ischemia. Continue Rocephin, azithromycin, inhalers. Job ID: [id number]
--- NOTE | 2019-12-02 16:56 | PDOC.HOSPP ---
- Subjective Encounter Date: 12/02/19 Encounter Time: 10:00 Subjective: Pt seen for followup re: pneumonia. Cough+. Fever+. - Objective Vital Signs & Weight: Vital Signs (12 hours) Temp Pulse Resp BP Pulse Ox 12/02/19 13:00 104 H 18 12/02/19 11:39 100.7 F H 104 H 22 H 171/82 H 95 12/02/19 08:00 99.4 F 108 H 18 137/71 94 L 12/02/19 07:30 100 14 Weight Weight 202 lb 8 oz I&O: 12/01/19 12/02/19 12/03/19 06:59 06:59 06:59 Intake Total 4350 1862 Output Total 6734 646 2478 Balance 3350 1312 -1200 Result Diagrams: 12/02/19 08:52 12/02/19 08:52 Additional Labs: Accuchecks 12/02/19 12/01/19 12/01/19 10:52 20:51 17:32 POC Glucose 162 H 187 H 219 H Labs and MARs reviewed by me EKG Reviewed by me: Yes (Tele: NSR) Hospitalist ROS - Review of Systems Respiratory: reports: cough, dry, wheezing. denies: shortness of breath, hemoptysis, SOB with excertion, pleuritic pain, sputum Gastrointestinal: denies: nausea, vomiting, abdominal pain, diarrhea, constipation, melena, hematochezia - Medication Medications: Active Medications Generic Name Dose Route Start Last Admin Trade Name Freq PRN Reason Stop Dose Admin Acetaminophen 500 mg 11/30/19 12:49 12/01/19 05:46 Tylenol PO 500 mg Q6H PRN Administration Pain Albuterol/Ipratropium 3 ml 12/01/19 12:58 12/02/19 13:00 Duoneb NEB 3 ml Q6H PRN Administration SOB &/or Wheezing Alogliptin Benzoate 12.5 mg 12/02/19 09:00 12/02/19 08:57 Alogliptin PO 12.5 mg DAILY JOSEPH Administration Aspirin 325 mg 12/02/19 09:00 12/02/19 08:58 Ecotrin PO 325 mg DAILY JOSEPH Administration Enoxaparin Sodium 80 mg 12/01/19 21:00 12/01/19 20:58 Lovenox SC 80 mg 2100 JOSEPH Administration Famotidine 20 mg 11/30/19 09:00 12/02/19 08:58 Pepcid SLOW IVP 20 mg DAILY JOSEPH Administration Guaifenesin/Dextromethorphan 15 ml 11/29/19 21:48 12/02/19 14:11 Robitussin Dm PO 15 ml Q4H PRN Administration Cough Sodium Chloride 1,000 mls @ 100 mls/hr 11/29/19 22:00 12/02/19 15:50 Normal Saline 0.9% IV 1,000 mls .Q10H JOSEPH Administration Azithromycin 500 mg/ Sodium 250 mls @ 250 mls/hr 11/30/19 19:00 12/01/19 20: 57 Chloride IVPB 250 mls Q24HR JOSEPH Administration Ceftriaxone Sodium 1 gm/ 100 mls @ 200 mls/hr 11/30/19 18:00 12/01/19 18:24 Sodium Chloride IVPB 100 mls Q24HR JOSEPH Administration Ibuprofen 200 mg 11/30/19 17:03 12/02/19 12:40 Motrin PO 200 mg Q6H PRN Administration TEMP>100 Insulin Human Lispro 0 units 12/01/19 18:15 12/02/19 12:41 Humalog SC 2 unit .MILD SLIDING SCALE PRN Administration Mild Correctional Scale Metoprolol Succinate 25 mg 12/02/19 09:00 12/02/19 08:58 Toprol Xl PO 25 mg DAILY JOSEPH Administration Ondansetron HCl 4 mg 11/30/19 13:00 11/30/19 13:52 Zofran IVP 4 mg Q6H PRN Administration Nausea/Vomiting Sodium Chloride 10 ml 11/30/19 09:00 12/02/19 08:59 Flush - Normal Saline IVF 10 ml Q12HR JOSEPH Administration - Exam General Appearance: NAD Eye: anicteric sclera ENT: normocephalic atraumatic Neck: supple Heart: RRR, no rubs Respiratory: normal chest expansion, wheezes Gastrointestinal: soft, non-tender Extremities: no cyanosis Psychiatric: normal affect, normal behavior Hosp A/P (1) Pneumonia Code(s): J18.9 - PNEUMONIA, UNSPECIFIED ORGANISM Status: Acute (2) Myocardial infarction Code(s): I21.9 - ACUTE MYOCARDIAL INFARCTION, UNSPECIFIED Status: Acute Qualifiers: Myocardial infarction type: type 2 Qualified Code(s): I21.A1 - Myocardial infarction type 2 (3) DM II (diabetes mellitus, type II), controlled Code(s): E11.9 - TYPE 2 DIABETES MELLITUS WITHOUT COMPLICATIONS Status: Chronic (4) HTN (hypertension) Code(s): I10 - ESSENTIAL (PRIMARY) HYPERTENSION Status: Chronic Qualifiers: Hypertension type: essential hypertension Qualified Code(s): I10 - Essential (primary) hypertension (5) Sepsis Code(s): A41.9 - SEPSIS, UNSPECIFIED ORGANISM Status: Resolved - Plan Continue IV ceftriaxone and IV azithromycin. COVID 19 ruled out. 2D echo result noted. Reasonable control of blood sugars. Continue antitussives and pain medications.
[2019-12-02] MEDS: cefTRIAXone\\ROCEPHIN 1 GM in Sodium Chloride 0.9% 100 ML IVPB SCH (17:55)
[2019-12-02] MEDS: Azithromycin 500 MG in Sodium Chloride 0.9% 250 ML 250 ML IVPB SCH (18:43)
[2019-12-02] MEDS: Enoxaparin Sodium 80 MG/0.8 ML SYRINGE SC SCH (20:32)
[2019-12-03] MEDS: Guaifenesin DM 100-10/5 ML UDCUP PO PRN ×3 (01:55→17:37)
[2019-12-03] MEDS: Sodium Chloride 0.9% 1,000 ML IV SCH ×2 (01:56→17:51)
[2019-12-03 04:56] LABS: #Eosinphils 0.1 thou/uL (0.0-0.7); #Lymphocytes 0.5 thou/uL (1.20-3.40); #Monocytes 1.4 thou/uL (0.11-0.59); #Neutrophils 12.2 thou/uL (1.40-6.50); %Basophils 0.2 % (0.0-1.0); %Eosinophils 0.5 % (0.0-10.0); %Lymphocytes 3.5 % (21.0-51.0); %Monocytes 10.1 % (0.0-10.0); %Neutrophils 85.7 % (42.0-75.0); Hemoglobin 9.4 g/dL (14.0-18.0); Mean Corpuscular Hemoglobin 31.5 pg (27.0-31.0); Mean Corpuscular Volume 95.6 fL (78.0-98.0); Mean Platelet Volume 8.7 fL (7.4-10.4); Platelet Count 260 thou/uL (130-400); RBC Distribution Width 11.4 % (11.5-14.5); Red Blood Cell (RBC) Count 2.98 mill/uL (4.70-6.10); White Blood Cell (WBC) Count 14.2 thou/uL (4.8-10.8)
[2019-12-03 05:17] LABS: Anion Gap 12 mmol/L (10-20); BUN (Urea Nitrogen) 29 mg/dL (8.4-25.7); Calc. Creatinine Clearance 45 mL/min (70-130); Carbon Dioxide 18 mmol/L (23-31); Chloride 106 mmol/L (98-107); Estimated GFR-MDRD 32; Glucose 187 mg/dL (80-115); Potassium 4.3 mmol/L (3.5-5.1); Sodium 132 mmol/L (136-145)
[2019-12-03] MEDS: HumaLOG 300 UNITS/3 ML VIAL SC PRN (06:27)
[2019-12-03] MEDS: Famotidine/PF 20 mg/2ml Vial SLOW IVP SCH (09:08)
[2019-12-03] MEDS: Alogliptin 6.25 MG TAB PO SCH (09:08)
[2019-12-03] MEDS: Aspirin 325 mg Enteric Coated Tablet PO SCH (09:08)
[2019-12-03] MEDS: cefTRIAXone\\ROCEPHIN 1 GM in Sodium Chloride 0.9% 100 ML IVPB SCH (17:36)
[2019-12-03] MEDS ORDERED: Phenazopyridine HCl 97.5 MG TABLET PO SCH (18:30)
--- NOTE | 2019-12-03 18:30 | PDOC.HOSPP ---
- Subjective Encounter Date: 12/03/19 Encounter Time: 16:00 Subjective: Pt seen for followup re: pneumonia. Feels better today. - Objective Vital Signs & Weight: Vital Signs (12 hours) Temp Pulse Resp BP BP Pulse Ox 12/03/19 17:00 100.2 F H 106 H 18 152/69 H 92 L 12/03/19 14:40 104 H 16 12/03/19 11:55 98.6 F 104 H 18 168/87 H 95 12/03/19 10:00 99 20 12/03/19 08:16 97.8 F 101 H 19 147/81 H 95 Weight Weight 203 lb 8 oz I&O: 12/02/19 12/03/19 12/04/19 06:59 06:59 06:59 Intake Total 1862 4356 2340 Output Total 550 2800 900 Balance 1312 1556 1440 Result Diagrams: 12/03/19 04:07 12/03/19 04:07 Additional Labs: Accuchecks 12/03/19 12/03/19 12/03/19 16:45 11:04 05:38 POC Glucose 145 H 184 H 180 H 12/02/19 12/02/19 20:12 05:58 POC Glucose 154 H 155 H Labs and MARs reviewed by me EKG Reviewed by me: Yes (Tele: NSR) Hospitalist ROS - Review of Systems Constitutional: denies: fever, chills, sweats, weakness, malaise Respiratory: reports: cough, dry. denies: shortness of breath, hemoptysis, SOB with excertion, pleuritic pain, sputum, wheezing Cardiovascular: denies: chest pain, palpitations, edema, light headedness Skin: denies: brian, bruising - Medication Medications: Active Medications Generic Name Dose Route Start Last Admin Trade Name Freq PRN Reason Stop Dose Admin Acetaminophen 500 mg 11/30/19 12:49 12/01/19 05:46 Tylenol PO 500 mg Q6H PRN Administration Pain Albuterol/Ipratropium 3 ml 12/02/19 23:25 12/03/19 14:40 Duoneb NEB 3 ml Q4H PRN Administration SOB &/or Wheezing Alogliptin Benzoate 12.5 mg 12/02/19 09:00 12/03/19 09:08 Alogliptin PO 12.5 mg DAILY JOSEPH Administration Aspirin 325 mg 12/02/19 09:00 12/03/19 09:08 Ecotrin PO 325 mg DAILY JOSEPH Administration Enoxaparin Sodium 80 mg 12/01/19 21:00 12/02/19 20:32 Lovenox SC 80 mg 2100 JOSEPH Administration Famotidine 20 mg 11/30/19 09:00 12/03/19 09:08 Pepcid SLOW IVP 20 mg DAILY JOSEPH Administration Guaifenesin/Dextromethorphan 15 ml 11/29/19 21:48 12/03/19 17:37 Robitussin Dm PO 15 ml Q4H PRN Administration Cough Sodium Chloride 1,000 mls @ 100 mls/hr 11/29/19 22:00 12/03/19 17:51 Normal Saline 0.9% IV 1,000 mls .Q10H JOSEPH Administration Azithromycin 500 mg/ Sodium 250 mls @ 250 mls/hr 11/30/19 19:00 12/02/19 18: 43 Chloride IVPB 250 mls Q24HR JOSEPH Administration Ceftriaxone Sodium 1 gm/ 100 mls @ 200 mls/hr 11/30/19 18:00 12/03/19 17:36 Sodium Chloride IVPB 100 mls Q24HR JOSEPH Administration Ibuprofen 200 mg 11/30/19 17:03 12/02/19 12:40 Motrin PO 200 mg Q6H PRN Administration TEMP>100 Insulin Human Lispro 0 units 12/01/19 18:15 12/03/19 06:27 Humalog SC 2 unit .MILD SLIDING SCALE PRN Administration Mild Correctional Scale Metoprolol Succinate 25 mg 12/02/19 09:00 12/03/19 09:09 Toprol Xl PO 25 mg DAILY JOSEPH Administration Ondansetron HCl 4 mg 11/30/19 13:00 11/30/19 13:52 Zofran IVP 4 mg Q6H PRN Administration Nausea/Vomiting Sodium Chloride 10 ml 11/30/19 09:00 12/03/19 09:11 Flush - Normal Saline IVF 10 ml Q12HR JOSEPH Administration - Exam General Appearance: awake alert Eye: anicteric sclera ENT: normocephalic atraumatic, moist mucosa Neck: supple, no JVD Heart: RRR Respiratory: CTAB, normal chest expansion Gastrointestinal: soft, non-tender Musculoskeletal: normal tone Psychiatric: normal affect, normal behavior Hosp A/P (1) Pneumonia Code(s): J18.9 - PNEUMONIA, UNSPECIFIED ORGANISM Status: Acute (2) Myocardial infarction Code(s): I21.9 - ACUTE MYOCARDIAL INFARCTION, UNSPECIFIED Status: Acute Qualifiers: Myocardial infarction type: type 2 Qualified Code(s): I21.A1 - Myocardial infarction type 2 (3) DM II (diabetes mellitus, type II), controlled Code(s): E11.9 - TYPE 2 DIABETES MELLITUS WITHOUT COMPLICATIONS Status: Chronic (4) HTN (hypertension) Code(s): I10 - ESSENTIAL (PRIMARY) HYPERTENSION Status: Chronic Qualifiers: Hypertension type: essential hypertension Qualified Code(s): I10 - Essential (primary) hypertension (5) Sepsis Code(s): A41.9 - SEPSIS, UNSPECIFIED ORGANISM Status: Resolved - Plan Pneumonia improving. Continue IV ceftriaxone and IV azithromycin. COVID 19 ruled out. Ambulate patient. Reasonable control of blood sugars.
[2019-12-03] MEDS: Azithromycin 500 MG in Sodium Chloride 0.9% 250 ML 250 ML IVPB SCH (19:18)
[2019-12-03] MEDS ORDERED: Cepastat Lozenges 1 LOZ PO PRN (19:29)
[2019-12-03] MEDS ORDERED: Senokot S 8.6-50 MG TAB PO PRN (19:29)
[2019-12-03] MEDS: Enoxaparin Sodium 80 MG/0.8 ML SYRINGE SC SCH (20:13)
[2019-12-04] MEDS: Guaifenesin DM 100-10/5 ML UDCUP PO PRN ×4 (01:38→23:21)
[2019-12-04] MEDS: Sodium Chloride 0.9% 1,000 ML IV SCH ×3 (04:01→23:21)
[2019-12-04 04:33] LABS: Anion Gap 13 mmol/L (10-20); BUN (Urea Nitrogen) 26 mg/dL (8.4-25.7); Calc. Creatinine Clearance 49 mL/min (70-130); Calcium 7.9 mg/dL (7.8-10.44); Carbon Dioxide 18 mmol/L (23-31); Chloride 108 mmol/L (98-107); Estimated GFR-MDRD 35; Glucose 178 mg/dL (80-115); Potassium 4.1 mmol/L (3.5-5.1); Sodium 135 mmol/L (136-145)
[2019-12-04 04:48] LABS: Band 8 % (5-11); Eosinophils 2 % (0-10); Hemoglobin 8.9 g/dL (14.0-18.0); Lymphocytes 11 % (21-51); MDiff Complete? YES; Mean Corpuscular HGB CONC 33.5 g/dL (32.0-36.0); Mean Corpuscular Volume 95.4 fL (78.0-98.0); Mean Platelet Volume 7.7 fL (7.4-10.4); Metamyelocyte 1 % (0-0); Monocytes 13 % (0-10); Neutrophil 65 % (42-75); Platelet Count 290 thou/uL (130-400); Platelet Morphology Comment Appears Adequate; RBC Distribution Width 11.6 % (11.5-14.5); Red Blood Cell (RBC) Count 2.77 mill/uL (4.70-6.10); White Blood Cell (WBC) Count 11.2 thou/uL (4.8-10.8)
[2019-12-04] MEDS: Alogliptin 6.25 MG TAB PO SCH (07:41)
[2019-12-04] MEDS: Famotidine/PF 20 mg/2ml Vial SLOW IVP SCH (07:41)
[2019-12-04] MEDS: Aspirin 325 mg Enteric Coated Tablet PO SCH (07:42)
[2019-12-04] MEDS: HumaLOG 300 UNITS/3 ML VIAL SC PRN (11:20)
--- NOTE | 2019-12-04 11:37 | EKG ---
Test Reason : Blood Pressure : / mmHG Vent. Rate : 114 BPM Atrial Rate : 114 BPM P-R Int : 144 ms QRS Dur : 086 ms QT Int : 320 ms P-R-T Axes : 045 037 041 degrees QTc Int : 441 ms Sinus tachycardia Otherwise normal ECG Confirmed by ALICE STOLL ([id number]) on 12/04/2019 11:36:27 AM Referred By: MATTY Confirmed By:ALICE STOLL
--- NOTE | 2019-12-04 11:46 | PRG ---
DATE OF SERVICE: 12/04/2019 SUBJECTIVE: Mr. Kingsley states he is slowly improving. He continues to be short of breath. He had no shortness of breath prior to his recent diagnosis of pneumonia. His overall LVEF does appear normal. PHYSICAL EXAMINATION: GENERAL: Patient is a pleasant male, who is in no acute distress. The patient appears their stated age. VITAL SIGNS: Blood pressure 164/81, pulse 97, temp 98. NEUROLOGIC: The patient is alert and oriented x3 with no focal neurologic deficits. HEENT: Sclerae without icterus. Mouth has moist mucous membranes with normal pallor. NECK: No JVD. Carotid upstroke brisk. No bruits bilaterally. LUNGS: Clear to auscultation with unlabored respirations. BACK: No scoliosis or kyphosis. CARDIAC: Regular rate and rhythm with normal S1 and S2. No S3 or S4 noted. No significant rubs, murmurs, thrills, or gallops noted throughout the precordium. PMI is not displaced. There is no parasternal heave. ABDOMEN: Soft, nontender, nondistended. No peritoneal signs present. No hepatosplenomegaly. No abnormal striae. EXTREMITIES: 2+ femoral and 2+ dorsalis pedis pulses. No cyanosis, clubbing, or edema. SKIN: No gross abnormalities. PERTINENT LABORATORY DATA: Hemoglobin 8.9. Creatinine 1.93 with GFR of 35. CT chest, left-sided pneumonia. IMPRESSION: 1. Shortness of breath. 2. Elevated troponin. RECOMMENDATIONS: Mr. Kingsley's increased troponin likely due to demand ischemia from underlying pneumonia. He is currently chest pain free. His shortness of breath slowly improving, likely related to pneumonia. At this point, we would recommend continued conservative therapy. Decrease aspirin 81 q.a.m. Continue antibiotic therapy. Discontinue enoxaparin and continue metoprolol. Also, recommend statin therapy. Otherwise, I have no further recommendation. Plan is to follow up Mr. Kingsley as an outpatient. Job ID: [id number]
[2019-12-04] MEDS: cefTRIAXone\\ROCEPHIN 1 GM in Sodium Chloride 0.9% 100 ML IVPB SCH (17:30)
--- NOTE | 2019-12-04 18:08 | PRG ---
DATE OF SERVICE: 12/04/2019 SUBJECTIVE: The patient is sitting in bed. He is still dyspneic when he does any activity. Cough is still dry. No chest pain. No abdominal pain. His temperature has a downward trend. Still had 100.2 elevation yesterday at 5 p.m. but not since. OBJECTIVE: VITAL SIGNS: Blood pressure 160/84, pulse 90, O2 saturations are 97 on room air. LUNGS: Sounds are kind of diminished. He does have some egophony on the left side. I wonder if there is a pleural effusion on the left side. HEART: S1 and S2, regular rate. ABDOMEN: Soft, not distended or tender. EXTREMITIES: Moves all extremities equally. LABORATORY DATA: White cell count is at 11, platelets at 290 with 8% bands, and the creatinine is down to 1.93. Strep pneumoniae antigen negative. Echocardiogram with EF 50% to 60%, moderate dilation of left atrium. Mild tricuspid regurgitation, normal pulmonary artery pressure. ASSESSMENT AND DISCUSSION: 1. Type 2 diabetes. 2. Chronic kidney disease. 3. Cough. 4. Fever. 5. Community-acquired pneumonia. 6. Demand ischemia. Repeat chest x-ray. Continue current antimicrobial. Job ID: [id number]
--- NOTE | 2019-12-04 18:33 | PDOC.HOSPP ---
- Subjective Encounter Date: 12/04/19 Encounter Time: 08:10 Subjective: Pt seen for followup re: pneumonia. Cough improving. No fevers. - Objective Vital Signs & Weight: Vital Signs (12 hours) Temp Pulse Resp BP BP Pulse Ox 12/04/19 16:27 98.4 F 90 18 162/84 H 97 12/04/19 12:47 100 20 12/04/19 12:01 98.8 F 91 18 169/89 H 94 L 12/04/19 07:45 92 L 12/04/19 07:35 98.0 F 97 19 164/81 H 92 L 12/04/19 07:06 94 L 12/04/19 07:02 101 H 24 H 94 L Weight Weight 203 lb 8 oz I&O: 12/03/19 12/04/19 12/05/19 06:59 06:59 06:59 Intake Total 4356 2340 Output Total 2800 900 Balance 1556 1440 Result Diagrams: 12/04/19 03:54 12/04/19 03:54 Additional Labs: Accuchecks 12/04/19 12/04/19 12/04/19 16:48 10:38 05:55 POC Glucose 147 H 178 H 92 12/03/19 20:24 POC Glucose 200 H Labs and MARs reviewed by me EKG Reviewed by me: Yes (Tele: NSR) Hospitalist ROS - Review of Systems Respiratory: reports: cough. denies: shortness of breath, SOB with excertion, pleuritic pain, wheezing Cardiovascular: denies: chest pain, palpitations, orthopnea, paroxysmal noc. dyspnea, edema, light headedness - Medication Medications: Active Medications Generic Name Dose Route Start Last Admin Trade Name Freq PRN Reason Stop Dose Admin Acetaminophen 500 mg 11/30/19 12:49 12/01/19 05:46 Tylenol PO 500 mg Q6H PRN Administration Pain Albuterol/Ipratropium 3 ml 12/02/19 23:25 12/04/19 12:47 Duoneb NEB 3 ml Q4H PRN Administration SOB &/or Wheezing Alogliptin Benzoate 12.5 mg 12/02/19 09:00 12/04/19 07:41 Alogliptin PO 12.5 mg DAILY JOSEPH Administration Aspirin 325 mg 12/02/19 09:00 12/04/19 07:42 Ecotrin PO 325 mg DAILY JOSEPH Administration Enoxaparin Sodium 80 mg 12/01/19 21:00 12/03/19 20:13 Lovenox SC 80 mg 2100 JOSEPH Administration Famotidine 20 mg 11/30/19 09:00 12/04/19 07:41 Pepcid SLOW IVP 20 mg DAILY JOSEPH Administration Guaifenesin/Dextromethorphan 15 ml 11/29/19 21:48 12/04/19 16:22 Robitussin Dm PO 15 ml Q4H PRN Administration Cough Sodium Chloride 1,000 mls @ 100 mls/hr 11/29/19 22:00 12/04/19 14:30 Normal Saline 0.9% IV 1,000 mls .Q10H JOSEPH Administration Azithromycin 500 mg/ Sodium 250 mls @ 250 mls/hr 11/30/19 19:00 12/03/19 19: 18 Chloride IVPB 250 mls Q24HR JOSEPH Administration Ceftriaxone Sodium 1 gm/ 100 mls @ 200 mls/hr 11/30/19 18:00 12/04/19 17:30 Sodium Chloride IVPB 100 mls Q24HR JOSEPH Administration Ibuprofen 200 mg 11/30/19 17:03 12/02/19 12:40 Motrin PO 200 mg Q6H PRN Administration TEMP>100 Insulin Human Lispro 0 units 12/01/19 18:15 12/04/19 11:20 Humalog SC 2 unit .MILD SLIDING SCALE PRN Administration Mild Correctional Scale Metoprolol Succinate 25 mg 12/02/19 09:00 12/04/19 07:42 Toprol Xl PO 25 mg DAILY JOSEPH Administration Ondansetron HCl 4 mg 11/30/19 13:00 11/30/19 13:52 Zofran IVP 4 mg Q6H PRN Administration Nausea/Vomiting Senna/Docusate Sodium 2 tab 12/03/19 19:29 12/03/19 20:12 Senokot S PO 2 tab BID PRN Administration Constipation Sodium Chloride 10 ml 11/30/19 09:00 12/04/19 07:42 Flush - Normal Saline IVF 10 ml Q12HR JOSEPH Administration Throat Lozenges 1 diana 12/03/19 19:29 12/03/19 20:13 Cepastat Lozenges PO 1 diana Q2H PRN Administration Sore Throat - Exam General Appearance: awake alert Eye: anicteric sclera ENT: moist mucosa Neck: supple Heart: RRR Respiratory: wheezes Gastrointestinal: soft, non-tender Skin: no rashes Psychiatric: normal affect, normal behavior Hosp A/P (1) Pneumonia Code(s): J18.9 - PNEUMONIA, UNSPECIFIED ORGANISM Status: Acute (2) DM II (diabetes mellitus, type II), controlled Code(s): E11.9 - TYPE 2 DIABETES MELLITUS WITHOUT COMPLICATIONS Status: Chronic (3) Myocardial infarction Code(s): I21.9 - ACUTE MYOCARDIAL INFARCTION, UNSPECIFIED Status: Acute Qualifiers: Myocardial infarction type: type 2 Qualified Code(s): I21.A1 - Myocardial infarction type 2 (4) HTN (hypertension) Code(s): I10 - ESSENTIAL (PRIMARY) HYPERTENSION Status: Chronic Qualifiers: Hypertension type: essential hypertension Qualified Code(s): I10 - Essential (primary) hypertension (5) Sepsis Code(s): A41.9 - SEPSIS, UNSPECIFIED ORGANISM Status: Resolved - Plan continue antibiotics Pt clinically improving. Pt is on IV ceftriaxone and IV azithromycin. COVID 19 ruled out. Ambulate patient. Reasonable control of blood sugars. Creatinine improved to 1.93 (? around baseline).
[2019-12-04] MEDS: Azithromycin 500 MG in Sodium Chloride 0.9% 250 ML 250 ML IVPB SCH (18:35)
[2019-12-04] MEDS: Enoxaparin Sodium 80 MG/0.8 ML SYRINGE SC SCH (20:33)
[2019-12-04] MEDS: hydrALAZINE 20 MG/ML VIAL SLOW IVP PRN (20:58)
[2019-12-05 04:42] LABS: Anion Gap 13 mmol/L (10-20); BUN (Urea Nitrogen) 25 mg/dL (8.4-25.7); Calc. Creatinine Clearance 50 mL/min (70-130); Calcium 8.1 mg/dL (7.8-10.44); Carbon Dioxide 20 mmol/L (23-31); Chloride 108 mmol/L (98-107); Estimated GFR-MDRD 35; Glucose 148 mg/dL (80-115); Potassium 4.5 mmol/L (3.5-5.1); Sodium 136 mmol/L (136-145)
[2019-12-05 04:55] LABS: Band 3 % (5-11); Hemoglobin 8.6 g/dL (14.0-18.0); Hypochromia SLIGHT = 6-15 cells (100X) (0-5/hpf); Lymphocytes 5 % (21-51); MDiff Complete? YES; Mean Corpuscular HGB CONC 31.3 g/dL (32.0-36.0); Mean Corpuscular Hemoglobin 30.1 pg (27.0-31.0); Mean Corpuscular Volume 95.9 fL (78.0-98.0); Mean Platelet Volume 7.4 fL (7.4-10.4); Monocytes 13 % (0-10); Neutrophil 79 % (42-75); Platelet Count 384 thou/uL (130-400); Platelet Morphology Comment Appears Adequate; RBC Distribution Width 11.5 % (11.5-14.5); Red Blood Cell (RBC) Count 2.88 mill/uL (4.70-6.10); White Blood Cell (WBC) Count 11.8 thou/uL (4.8-10.8)
--- NOTE | 2019-12-05 07:46 | RAD ---
RADIOGRAPH CHEST 2 VIEW: DATE: 12/05/2019 TIME: 2:28 AM HISTORY: 64-year-old male with pneumonia COMPARISON: 11/29/2019 FINDINGS: Left suprahilar and perihilar new consolidation which apparently involves apicoposterior segment of l eft upper lobe, and the superior segment of left lower lobe. Smaller consolidation at posterior base of left lower lobe. No cardiomegaly. Small bilateral pleural effusions. No pneumothorax. IMPRESSION: 1. New left-sided pneumonia: New consolidations 2. New small pleural effusions
[2019-12-05] MEDS: Famotidine/PF 20 mg/2ml Vial SLOW IVP SCH (08:17)
[2019-12-05] MEDS: Alogliptin 6.25 MG TAB PO SCH (08:17)
[2019-12-05] MEDS: Aspirin 325 mg Enteric Coated Tablet PO SCH (08:17)
[2019-12-05] MEDS: Sodium Chloride 0.9% 1,000 ML IV SCH ×2 (08:17→17:46)
[2019-12-05] MEDS: Guaifenesin DM 100-10/5 ML UDCUP PO PRN (11:33)
[2019-12-05] MEDS: cefTRIAXone\\ROCEPHIN 1 GM in Sodium Chloride 0.9% 100 ML IVPB SCH (17:46)
[2019-12-05] MEDS: Azithromycin 500 MG in Sodium Chloride 0.9% 250 ML 250 ML IVPB SCH (17:47)
--- NOTE | 2019-12-05 19:06 | PDOC.HOSPP ---
- Subjective Encounter Date: 12/05/19 Encounter Time: 09:00 Subjective: Pt sen for followup re: pneumonia. Cough+, but feels btetter. - Objective Vital Signs & Weight: Vital Signs (12 hours) Temp Pulse Resp BP BP Pulse Ox 12/05/19 16:00 97.7 F 85 15 164/87 H 96 12/05/19 12:00 97.8 F 84 12 132/100 H 93 L 12/05/19 08:18 97.3 F L 94 20 160/78 H 97 Weight Weight 203 lb 3.2 oz I&O: 12/04/19 12/05/19 12/06/19 06:59 06:59 06:59 Intake Total 2340 3470 1650 Output Total 900 1925 1200 Balance 1440 1545 450 Result Diagrams: 12/05/19 03:54 12/05/19 03:54 Additional Labs: Accuchecks 12/05/19 12/05/19 12/05/19 17:06 12:01 05:39 POC Glucose 176 H 155 H 140 H 12/04/19 20:54 POC Glucose 148 H Labs and MARs reviewed by me EKG Reviewed by me: Yes (Tele: NSR) Hospitalist ROS - Review of Systems Respiratory: reports: cough, dry. denies: shortness of breath, hemoptysis, SOB with excertion, pleuritic pain, sputum, wheezing Genitourinary: denies: dysuria, frequency, incontinence, hematuria, retention - Medication Medications: Active Medications Generic Name Dose Route Start Last Admin Trade Name Freq PRN Reason Stop Dose Admin Acetaminophen 500 mg 11/30/19 12:49 12/01/19 05:46 Tylenol PO 500 mg Q6H PRN Administration Pain Albuterol/Ipratropium 3 ml 12/02/19 23:25 12/05/19 06:22 Duoneb NEB 3 ml Q4H PRN Administration SOB &/or Wheezing Alogliptin Benzoate 12.5 mg 12/02/19 09:00 12/05/19 08:17 Alogliptin PO 12.5 mg DAILY JOSEPH Administration Aspirin 325 mg 12/02/19 09:00 12/05/19 08:17 Ecotrin PO 325 mg DAILY JOSEPH Administration Enoxaparin Sodium 80 mg 12/01/19 21:00 12/04/19 20:33 Lovenox SC 80 mg 2100 JOSEPH Administration Famotidine 20 mg 11/30/19 09:00 12/05/19 08:17 Pepcid SLOW IVP 20 mg DAILY JOSEPH Administration Guaifenesin/Dextromethorphan 15 ml 11/29/19 21:48 12/05/19 11:33 Robitussin Dm PO 15 ml Q4H PRN Administration Cough Hydralazine HCl 10 mg 12/02/19 17:00 12/04/19 20:58 Apresoline SLOW IVP 10 mg Q6H PRN Administration SBP Greater Than 170 Sodium Chloride 1,000 mls @ 100 mls/hr 11/29/19 22:00 12/05/19 17:46 Normal Saline 0.9% IV 1,000 mls .Q10H JOSEPH Administration Azithromycin 500 mg/ Sodium 250 mls @ 250 mls/hr 11/30/19 19:00 12/05/19 17: 47 Chloride IVPB 250 mls Q24HR JOSEPH Administration Ceftriaxone Sodium 1 gm/ 100 mls @ 200 mls/hr 11/30/19 18:00 12/05/19 17:46 Sodium Chloride IVPB 100 mls Q24HR JOSEPH Administration Ibuprofen 200 mg 11/30/19 17:03 12/02/19 12:40 Motrin PO 200 mg Q6H PRN Administration TEMP>100 Insulin Human Lispro 0 units 12/01/19 18:15 12/04/19 11:20 Humalog SC 2 unit .MILD SLIDING SCALE PRN Administration Mild Correctional Scale Metoprolol Succinate 25 mg 12/02/19 09:00 12/05/19 08:17 Toprol Xl PO 25 mg DAILY JOSEPH Administration Ondansetron HCl 4 mg 11/30/19 13:00 11/30/19 13:52 Zofran IVP 4 mg Q6H PRN Administration Nausea/Vomiting Senna/Docusate Sodium 2 tab 12/03/19 19:29 12/03/19 20:12 Senokot S PO 2 tab BID PRN Administration Constipation Sodium Chloride 10 ml 11/30/19 09:00 12/05/19 08:17 Flush - Normal Saline IVF 10 ml Q12HR JOSEPH Administration Throat Lozenges 1 diana 12/03/19 19:29 12/03/19 20:13 Cepastat Lozenges PO 1 diana Q2H PRN Administration Sore Throat - Exam General Appearance: awake alert Eye: anicteric sclera ENT: moist mucosa Neck: supple Heart: RRR Respiratory: no rales, normal chest expansion, wheezes Gastrointestinal: soft, non-tender Extremities: no cyanosis Psychiatric: normal affect, normal behavior Hosp A/P (1) Pneumonia Code(s): J18.9 - PNEUMONIA, UNSPECIFIED ORGANISM Status: Acute (2) DM II (diabetes mellitus, type II), controlled Code(s): E11.9 - TYPE 2 DIABETES MELLITUS WITHOUT COMPLICATIONS Status: Chronic (3) HTN (hypertension) Code(s): I10 - ESSENTIAL (PRIMARY) HYPERTENSION Status: Chronic Qualifiers: Hypertension type: essential hypertension Qualified Code(s): I10 - Essential (primary) hypertension (4) Sepsis Code(s): A41.9 - SEPSIS, UNSPECIFIED ORGANISM Status: Resolved (5) Myocardial infarction Code(s): I21.9 - ACUTE MYOCARDIAL INFARCTION, UNSPECIFIED Status: Resolved Qualifiers: Myocardial infarction type: type 2 Qualified Code(s): I21.A1 - Myocardial infarction type 2 - Plan Pt clinically improving. Continue IV ceftriaxone and IV azithromycin. COVID 19 ruled out. Ambulate patient. Blood sugars reasonably controlled Creatinine 1.91 today (around baseline)
[2019-12-05] MEDS ORDERED: Simethicone Chewable 80 MG TAB PO PRN (19:24)
[2019-12-05] MEDS: Enoxaparin Sodium 80 MG/0.8 ML SYRINGE SC SCH (20:07)
[2019-12-06] MEDS: hydrALAZINE 20 MG/ML VIAL SLOW IVP PRN ×2 (04:24→11:05)
[2019-12-06] MEDS: Sodium Chloride 0.9% 1,000 ML IV SCH ×3 (04:25→21:46)
[2019-12-06] MEDS: Alogliptin 6.25 MG TAB PO SCH (08:12)
[2019-12-06] MEDS: Famotidine/PF 20 mg/2ml Vial SLOW IVP SCH (08:12)
[2019-12-06] MEDS: Aspirin 325 mg Enteric Coated Tablet PO SCH (08:12)
[2019-12-06 10:19] LABS: #Basophils 0.1 thou/uL (0.0-0.2); #Eosinphils 0.3 thou/uL (0.0-0.7); #Monocytes 1.4 thou/uL (0.11-0.59); %Basophils 0.6 % (0.0-1.0); %Eosinophils 2.5 % (0.0-10.0); %Lymphocytes 8.1 % (21.0-51.0); %Monocytes 12.1 % (0.0-10.0); %Neutrophils 76.7 % (42.0-75.0); Hemoglobin 11.1 g/dL (14.0-18.0); Mean Corpuscular HGB CONC 31.8 g/dL (32.0-36.0); Mean Corpuscular Hemoglobin 32.4 pg (27.0-31.0); Mean Platelet Volume 6.8 fL (7.4-10.4); Platelet Count 416 thou/uL (130-400); RBC Distribution Width 11.7 % (11.5-14.5); Red Blood Cell (RBC) Count 3.43 mill/uL (4.70-6.10); White Blood Cell (WBC) Count 11.7 thou/uL (4.8-10.8)
[2019-12-06 10:42] LABS: Anion Gap 14 mmol/L (10-20); BUN (Urea Nitrogen) 27 mg/dL (8.4-25.7); Calc. Creatinine Clearance 58 mL/min (70-130); Calcium 8.4 mg/dL (7.8-10.44); Carbon Dioxide 16 mmol/L (23-31); Chloride 110 mmol/L (98-107); Estimated GFR-MDRD 42; Glucose 127 mg/dL (80-115); Potassium 4.4 mmol/L (3.5-5.1); Sodium 136 mmol/L (136-145)
[2019-12-06] MEDS: cefTRIAXone\\ROCEPHIN 1 GM in Sodium Chloride 0.9% 100 ML IVPB SCH (17:08)
[2019-12-06] MEDS: Azithromycin 500 MG in Sodium Chloride 0.9% 250 ML 250 ML IVPB SCH (17:14)
--- NOTE | 2019-12-06 17:45 | PDOC.HOSPP ---
- Subjective Encounter Date: 12/06/19 Encounter Time: 08:00 Subjective: Pt seen for followup re: pneumonia,. Feels better today, still needs supplemental oxygen. - Objective Vital Signs & Weight: Vital Signs (12 hours) Temp Pulse Resp BP BP Pulse Ox 12/06/19 15:20 98 F 87 18 123/80 93 L 12/06/19 11:05 88 12/06/19 11:00 97.9 F 88 18 178/91 H 99 12/06/19 07:17 97.6 F 93 18 166/79 H 93 L 12/06/19 07:08 97 Weight Weight 204 lb 14.4 oz I&O: 12/05/19 12/06/19 12/07/19 06:59 06:59 06:59 Intake Total 3470 3570 2450 Output Total 1925 2125 1200 Balance 1545 1445 1250 Result Diagrams: 12/06/19 09:58 12/06/19 09:58 Additional Labs: Accuchecks 12/06/19 12/06/19 12/06/19 17:12 11:03 06:00 POC Glucose 172 H 176 H 127 H 12/05/19 20:50 POC Glucose 141 H Labs and MARs reviewed by me EKG Reviewed by me: Yes (Tele: NSR) Hospitalist ROS - Review of Systems Respiratory: reports: cough, dry, wheezing. denies: shortness of breath, hemoptysis, SOB with excertion, pleuritic pain, sputum Musculoskeletal: denies: neck pain, shoulder pain, arm pain, back pain, hand pain, leg pain, foot pain - Medication Medications: Active Medications Generic Name Dose Route Start Last Admin Trade Name Freq PRN Reason Stop Dose Admin Acetaminophen 500 mg 11/30/19 12:49 12/01/19 05:46 Tylenol PO 500 mg Q6H PRN Administration Pain Albuterol/Ipratropium 3 ml 12/02/19 23:25 12/05/19 06:22 Duoneb NEB 3 ml Q4H PRN Administration SOB &/or Wheezing Alogliptin Benzoate 12.5 mg 12/02/19 09:00 12/06/19 08:12 Alogliptin PO 12.5 mg DAILY JOSEPH Administration Aspirin 325 mg 12/02/19 09:00 12/06/19 08:12 Ecotrin PO 325 mg DAILY JOSEPH Administration Enoxaparin Sodium 80 mg 12/01/19 21:00 12/05/19 20:07 Lovenox SC 80 mg 2100 JOSEPH Administration Famotidine 20 mg 11/30/19 09:00 12/06/19 08:12 Pepcid SLOW IVP 20 mg DAILY JOSEPH Administration Guaifenesin/Dextromethorphan 15 ml 11/29/19 21:48 12/05/19 11:33 Robitussin Dm PO 15 ml Q4H PRN Administration Cough Hydralazine HCl 10 mg 12/02/19 17:00 12/06/19 11:05 Apresoline SLOW IVP 10 mg Q6H PRN Administration SBP Greater Than 170 Sodium Chloride 1,000 mls @ 100 mls/hr 11/29/19 22:00 12/06/19 15:19 Normal Saline 0.9% IV 1,000 mls .Q10H JOSEPH Administration Azithromycin 500 mg/ Sodium 250 mls @ 250 mls/hr 11/30/19 19:00 12/06/19 17: 14 Chloride IVPB 250 mls Q24HR JOSEPH Administration Ceftriaxone Sodium 1 gm/ 100 mls @ 200 mls/hr 11/30/19 18:00 12/06/19 17:08 Sodium Chloride IVPB 100 mls Q24HR JOSEPH Administration Ibuprofen 200 mg 11/30/19 17:03 12/02/19 12:40 Motrin PO 200 mg Q6H PRN Administration TEMP>100 Insulin Human Lispro 0 units 12/01/19 18:15 12/04/19 11:20 Humalog SC 2 unit .MILD SLIDING SCALE PRN Administration Mild Correctional Scale Metoprolol Succinate 25 mg 12/02/19 09:00 12/06/19 08:12 Toprol Xl PO 25 mg DAILY JOSEPH Administration Ondansetron HCl 4 mg 11/30/19 13:00 11/30/19 13:52 Zofran IVP 4 mg Q6H PRN Administration Nausea/Vomiting Senna/Docusate Sodium 2 tab 12/03/19 19:29 12/03/19 20:12 Senokot S PO 2 tab BID PRN Administration Constipation Simethicone 80 mg 12/05/19 19:24 12/05/19 20:07 Mylicon Chewable PO 80 mg PCHS PRN Administration Gas Pain Sodium Chloride 10 ml 11/30/19 09:00 12/06/19 08:12 Flush - Normal Saline IVF 10 ml Q12HR JOSEPH Administration Throat Lozenges 1 diana 12/03/19 19:29 12/03/19 20:13 Cepastat Lozenges PO 1 diana Q2H PRN Administration Sore Throat - Exam General Appearance: awake alert Eye: anicteric sclera ENT: moist mucosa Neck: supple Heart: RRR Respiratory: CTAB Gastrointestinal: soft, non-tender Extremities: no cyanosis Skin: no rashes Psychiatric: normal affect, normal behavior Hosp A/P (1) Pneumonia Code(s): J18.9 - PNEUMONIA, UNSPECIFIED ORGANISM Status: Acute (2) DM II (diabetes mellitus, type II), controlled Code(s): E11.9 - TYPE 2 DIABETES MELLITUS WITHOUT COMPLICATIONS Status: Chronic (3) HTN (hypertension) Code(s): I10 - ESSENTIAL (PRIMARY) HYPERTENSION Status: Chronic Qualifiers: Hypertension type: essential hypertension Qualified Code(s): I10 - Essential (primary) hypertension (4) Sepsis Code(s): A41.9 - SEPSIS, UNSPECIFIED ORGANISM Status: Resolved (5) Myocardial infarction Code(s): I21.9 - ACUTE MYOCARDIAL INFARCTION, UNSPECIFIED Status: Resolved Qualifiers: Myocardial infarction type: type 2 Qualified Code(s): I21.A1 - Myocardial infarction type 2 - Plan Pt clinically improving. Continue IV ceftriaxone and IV azithromycin. Try to wean off of supplemental oxygen. COVID 19 ruled out. Ambulate patient. Blood sugars reasonably controlled Creatinine 1.65 today.
[2019-12-06] MEDS: Enoxaparin Sodium 80 MG/0.8 ML SYRINGE SC SCH (21:46)
[2019-12-07 04:18] LABS: #Eosinphils 0.4 thou/uL (0.0-0.7); #Lymphocytes 1.3 thou/uL (1.20-3.40); #Monocytes 1.4 thou/uL (0.11-0.59); %Basophils 0.3 % (0.0-1.0); %Eosinophils 2.7 % (0.0-10.0); %Lymphocytes 10.2 % (21.0-51.0); %Monocytes 10.9 % (0.0-10.0); %Neutrophils 75.9 % (42.0-75.0); Hemoglobin 8.9 g/dL (14.0-18.0); Mean Corpuscular HGB CONC 31.9 g/dL (32.0-36.0); Mean Corpuscular Volume 93.9 fL (78.0-98.0); Mean Platelet Volume 7.1 fL (7.4-10.4); Platelet Count 460 thou/uL (130-400); RBC Distribution Width 11.5 % (11.5-14.5); Red Blood Cell (RBC) Count 2.98 mill/uL (4.70-6.10); White Blood Cell (WBC) Count 13.1 thou/uL (4.8-10.8)
[2019-12-07 04:26] LABS: Anion Gap 13 mmol/L (10-20); BUN (Urea Nitrogen) 27 mg/dL (8.4-25.7); Calc. Creatinine Clearance 53 mL/min (70-130); Calcium 7.8 mg/dL (7.8-10.44); Carbon Dioxide 17 mmol/L (23-31); Chloride 110 mmol/L (98-107); Estimated GFR-MDRD 38; Glucose 210 mg/dL (80-115); Potassium 4.3 mmol/L (3.5-5.1); Sodium 136 mmol/L (136-145)
[2019-12-07] MEDS: HumaLOG 300 UNITS/3 ML VIAL SC PRN (06:13)
[2019-12-07] MEDS: hydrALAZINE 20 MG/ML VIAL SLOW IVP PRN (07:10)
[2019-12-07] MEDS: Aspirin 325 mg Enteric Coated Tablet PO SCH (08:15)
[2019-12-07] MEDS: Famotidine/PF 20 mg/2ml Vial SLOW IVP SCH (08:15)
[2019-12-07] MEDS: Alogliptin 6.25 MG TAB PO SCH (08:15)
[2019-12-07] MEDS: Sodium Chloride 0.9% 1,000 ML IV SCH (09:00)
[2019-12-07] MEDS ORDERED: Cefdinir 300 MG CAP PO SCH ×2 (09:15→21:00)
[2019-12-07 10:32] VITALS: BMI 27.0
[2019-12-07 11:06] VITALS: BP 144/68; TEMP 97.6
[2019-12-07] MEDS ORDERED: Atorvastatin Calcium 20 MG TAB PO SCH (21:00)
--- NOTE | 2019-12-08 03:32 | DIS ---
DATE OF ADMISSION: 11/29/2019 DATE OF DISCHARGE: 12/07/2019 PRIMARY CARE PROVIDER: Amparo Jarrett PA-C DISCHARGE DIAGNOSES: 1. Sepsis. 2. Left lower lobe pneumonia. 3. COVID-19 ruled out. 4. Wet-CF-nbvimclpz myocardial infarction type 2. 5. Acute on chronic stage 3 renal failure. CONDITION OF PATIENT ON THE DAY OF DISCHARGE: Stable. I assessed Mr. Kingsley on the day of discharge. He denies any chest pain or shortness of breath. Vital signs are stable. S1 and S2 are heard, regular. Lungs are clear to auscultation bilaterally. CONSULTATIONS DURING THIS HOSPITALIZATION: 1. Infectious Disease, Dr. Baker. 2. Cardiology, Dr. Ritchie. DISCHARGE MEDICATIONS: He has been started on cefdinir 300 mg 2 times a day for 1 week, Lipitor 20 mg at bedtime, and aspirin 81 mg daily. His home medications are being continued and include Januvia 50 mg daily, Lopressor 25 mg 2 times a day, and Trulicity 1.5 mg subcutaneously every week. DIET: Diabetic and heart healthy. ACTIVITY: As tolerated. DISCHARGE DESTINATION: Home. HOSPITAL COURSE: Mr. Kingsley is a pleasant 64-year-old gentleman, who was admitted to [facility] on November 29, 2019 for sepsis. COVID-19 was ruled out. He had CT scan of the chest, abdomen and pelvis, which showed left-sided pneumonia with a small left pleural effusion, small pericardial effusion and no evidence of acute intra-abdominal/pelvic abnormality. He was seen by Infectious Disease Service. He was treated with antibiotics. His troponin was elevated following hospitalization. He was seen by Cardiology Service. 2D echocardiogram showed left ventricular ejection fraction of 55% to 60%, mild to moderately dilated left atrium, mild mitral regurgitation, mild tricuspid regurgitation and normal pulmonary artery pressure. He was diagnosed with non ST elevation myocardial infarction type 2. He continued to improve clinically. He was needing supplemental oxygen until December 06, 2019. He was weaned off oxygen on December 07, 2019. He is being discharged home in a stable condition. Many thanks for allowing me to participate in your patient's care. Please feel free to contact me with any questions or concerns. TIME SPENT: Total amount of time spent coordinating this discharge: 25 minutes. Job ID: [id number]
[2019-12-08] MEDS ORDERED: Aspirin 81 mg Enteric Coated Tablet PO SCH (09:00)
== END 2019-12-07 14:38 | disposition home or self-care (01) | DRG 871 ==
LOC: OBSVTOIN 20:50 → 2SW 20:50 → T4-B 11-30 19:06 → 2NO 12-01 14:53
PROVIDERS: ADMIT Internal Medicine; ATTEND Internal Medicine
PROC: 8E0ZXY6 Isolation (ICD-10-PCS; principal; 2019-11-29)
DX: A41.9 Sepsis, unspecified organism (principal); J18.9 Pneumonia, unspecified organism; I21.A1 Myocardial infarction type 2; N17.9 Acute kidney failure, unspecified; J90 Pleural effusion, not elsewhere classified; I31.3 Pericardial effusion (noninflammatory); N18.4 Chronic kidney disease, stage 4 (severe); Z20.828 Contact with and (suspected) exposure to other viral communicable diseases; I12.9 Hypertensive chronic kidney disease with stage 1 through stage 4 chronic kidney disease, or unspecified chronic kidney disease; E11.65 Type 2 diabetes mellitus with hyperglycemia; E11.22 Type 2 diabetes mellitus with diabetic chronic kidney disease; I08.1 Rheumatic disorders of both mitral and tricuspid valves
CPT/HCPCS: 36415; 36416; 71046; 71250; 74177; 80048; 81001; 82553; 83880; 84484; 85025; 87449; 87635; 93005; 93010; 93306; 94640; J0360; J0456; J0696; J1644; J1650; J2405; J3490; J7050; J7620; S0028; U0003

== ENCOUNTER 2019-12-16 04:46 | Observation (INO) | payer MEDICARE, MEDICAID, OTHER ==
[2019-12-16] MEDS ORDERED: Acetaminophen 325 MG TAB PO PRN (08:03)
[2019-12-16] MEDS: Furosemide 40 MG/4 ML VIAL SLOW IVP SCH (15:22)
[2019-12-16] MEDS ORDERED: Dextrose 50% Abboject 50 ML SYRINGE SLOW IVP PRN (16:14)
[2019-12-16] MEDS ORDERED: Dextrose 5% in Water 1,000 ML IV PRN (16:14)
[2019-12-16] MEDS ORDERED: HumaLOG 300 UNITS/3 ML VIAL SC PRN (16:14)
--- NOTE | 2019-12-16 18:50 | HP ---
PRIMARY CARE PROVIDER: Amparo Jarrett. CHIEF COMPLAINT: Shortness of breath. HISTORY OF PRESENT ILLNESS: Mr. Kingsley is a pleasant 64-year-old gentleman, who was seen at [facility] on December 16, 2019, following transfer from emergency room at [place]. He was hospitalized at this facility from November 28 to December 06 of this year for sepsis, left lower lobe pneumonia, [id number]-[id number] myocardial infarction type 2, and acute on chronic stage 3 renal failure. He was also ruled out for COVID infection during that hospitalization. 2D echocardiogram done during that admission showed left ventricular ejection fraction of 55% to 60%, mild mitral regurgitation, mild tricuspid regurgitation, [id number]-[id number] dilated left atrium, and normal pulmonary artery pressure. The patient reports that after going home, he started having worsening shortness of breath. He reports shortness of breath with exertion. He also reports orthopnea. He reports cough, but denies any fevers or chills. He denies any nausea, vomiting, diarrhea, or abdominal pain. He denies any loss of sensation of taste or smell. He reports occasional wheezing. He also endorses orthopnea. He denies any recent weight gain. He reports that he got 2 puffs of Proventil from EMS and felt better. REVIEW OF SYSTEMS: All systems were reviewed and found to be negative except for the pertinent positives mentioned above. PAST MEDICAL HISTORY: Diabetes mellitus type 2, hypertension, COPD, diabetic neuropathy, chronic stage 3 renal failure. PAST SURGICAL HISTORY: Left arm surgery. SOCIAL HISTORY: The patient denies tobacco use, alcohol use, or recreational drug use. FAMILY HISTORY: The patient reports family history of heart disease among several family members. CODE STATUS: I discussed his code status. He is full code. ALLERGIES: NO KNOWN DRUG ALLERGIES. CURRENT MEDICATIONS: 1. Trulicity 1.5 mg subcutaneously every week. 2. Lopressor 25 mg 2 times a day. 3. Januvia 25 mg daily. 4. Aspirin 81 mg daily. PHYSICAL EXAMINATION: GENERAL: On examination, Mr. Kingsley is awake and alert, not in acute distress. VITAL SIGNS: Blood pressure is 151/82, pulse 75, respiratory rate 19, and oxygen saturation 95% on 2 L of oxygen through nasal cannula. He is afebrile. EYES: No scleral icterus. No conjunctival pallor. ENT: Moist mucosal membranes. No oropharyngeal erythema or exudates. NECK: Supple, nontender, trachea is midline. RESPIRATORY: Accessory muscles of breathing are not active. Chest wall movements are symmetric bilaterally. LUNGS: Reveal bibasilar crackles. CARDIOVASCULAR: S1 and S2 are heard, regular. Peripheral pulses palpable. ABDOMEN: Soft, nontender, bowel sounds are heard. NEUROLOGIC: Cranial nerves 2 through 12 are intact. MUSCULOSKELETAL: Power is 5/5 in all 4 extremities. SKIN: No rashes. LYMPHATIC: No cervical lymphadenopathy. PSYCHIATRIC: Normal mood, normal affect. The patient is oriented to person, place, and time. LABORATORY DATA: Mr. Kingsley's labs and investigations were reviewed. I reviewed his electrocardiogram, which shows normal sinus rhythm. He has T-wave inversions in the lateral leads. I also reviewed his chest x-ray, which shows bilateral infiltrates, also seen on prior chest x-ray and bilateral effusions and interstitial prominence bilaterally. He has normal white count, normocytic anemia with hemoglobin 8.0, hemoglobin was 8.9 on December 07, 2019, normal platelet count. Normal sodium, normal potassium, elevated blood urea nitrogen of 30, elevated creatinine of 2.18, creatinine was 1.80 on December 07, 2019. Elevated BNP of 1398, it was 524 on December 02, 2019. Unremarkable LFTs. Decreased albumin of 3.0. Indeterminate troponin-I of 0.062, troponin was 0.349 on December 01, 2019. Normal globulin level. ASSESSMENT AND PLAN: Mr. Kingsley is a pleasant 64-year-old gentleman, who was seen at [facility] on December 16, 2019. His problem list includes: 1. Shortness of breath: Mr. Kingsley is presenting with shortness of breath, most likely secondary to congestive heart failure exacerbation. He will be admitted to the hospital for further management. He will be started on intravenous furosemide, paying close attention to his renal function and electrolytes. I will order a repeat 2D echocardiogram, since he was here recently and this appears to be new-onset congestive heart failure. He does not have fever or leukocytosis, making pneumonia less likely. He will also be ruled out for COVID-19 infection, given his presentation. Please note that he tested negative twice recently for COVID infection. 2. Acute on chronic stage 3 renal failure: We will monitor creatinine and electrolytes closely. 3. Diabetes mellitus type 2: We will start Accu-Cheks and insulin sliding scale. 4. Hypertension: We will monitor vital signs and titrate antihypertensives as needed. 5. Chronic obstructive pulmonary disease: This appears to be stable. We will start him on p.r.n. bronchodilators. 6. The patient is being monitored on telemetry for elevated troponin. Further investigations depending on how his troponin trends. I will also obtain old electrocardiograms for comparison, given the inverted T-waves in the lateral leads. LEVEL OF RISK: High. LEVEL OF COMPLEXITY: High. Many thanks for allowing me to participate in your patient's care. Please feel free to contact me with any questions or concerns. Job ID: [id number]
[2019-12-16] MEDS: Metoprolol Tartrate 25 MG TAB PO SCH (19:09)
[2019-12-16 20:12] LABS: Troponin I 0.113 ng/mL (< 0.028)
[2019-12-16 22:43] LABS: Troponin I 0.119 ng/mL (< 0.028)
[2019-12-16 23:28] LABS: Actual Bicarbonate (HCO3a) 31.3 mEq/L (22-28); Base Excess (BEa) 6.6 mEq/L (-2.0 to +3.0); CO2 Tension 45.9 mmHg (35.0-45.0); Calcium, Ionized (arterial) 1.11 mmol/L (1.12-1.30); Hemoglobin (Hb) 10.2 g/dL (14.0-18.0); O2 Tension (PaO2), arterial 76.6 mmHg (> 80.0); Potassium - ABG Lab 4.02 mmol/L (3.70-5.30); pH, Arterial 7.45 (7.35-7.45)
[2019-12-16 23:30] LABS: ALV-art Gradient 65.665 (0-20); Puncture Site RR
--- NOTE | 2019-12-16 23:31 | RAD ---
Chest AP view INDICATION: 64-year-old male with low O2 sat COMPARISON: Prior dated December 16, 2019 at 3:18 AM FINDINGS: Lungs: There is worsening perihilar airspace opacities Cardiac silhouette: There is persistent mild cardiomegaly Pulmonary vasculature: There is persistent mild pulmonary vascular congestion Pleural spaces: There are persistent small pleural effusions Upper abdomen: No abnormality seen. Osseous structures: No acute osseous abnormality. Additional findings: None. IMPRESSION: Worsening perihilar airspace disease. Findings are suspicious for worsening edema or pneumonia. Stable cardiomegaly, mild pulmonary vascular congestion and small bilateral pleural effusions
[2019-12-17] MEDS: Furosemide 40 MG/4 ML VIAL SLOW IVP SCH ×2 (05:05→11:00)
[2019-12-17 05:13] LABS: #Basophils 0.1 thou/uL (0.0-0.2); #Eosinphils 0.2 thou/uL (0.0-0.7); #Lymphocytes 2.2 thou/uL (1.20-3.40); #Monocytes 0.9 thou/uL (0.11-0.59); #Neutrophils 6.2 thou/uL (1.40-6.50); %Basophils 0.8 % (0.0-1.0); %Eosinophils 2.4 % (0.0-10.0); %Lymphocytes 22.7 % (21.0-51.0); %Monocytes 9.5 % (0.0-10.0); %Neutrophils 64.7 % (42.0-75.0); Hemoglobin 8.9 g/dL (14.0-18.0); Mean Corpuscular HGB CONC 33.2 g/dL (32.0-36.0); Mean Corpuscular Hemoglobin 31.9 pg (27.0-31.0); Mean Corpuscular Volume 95.9 fL (78.0-98.0); Mean Platelet Volume 8.4 fL (7.4-10.4); Platelet Count 217 thou/uL (130-400); RBC Distribution Width 11.8 % (11.5-14.5); White Blood Cell (WBC) Count 9.6 thou/uL (4.8-10.8)
[2019-12-17 05:32] LABS: Anion Gap 11 mmol/L (10-20); BUN (Urea Nitrogen) 27 mg/dL (8.4-25.7); Calc. Creatinine Clearance 47 mL/min (70-130); Calcium 8.6 mg/dL (7.8-10.44); Carbon Dioxide 32 mmol/L (23-31); Chloride 102 mmol/L (98-107); Estimated GFR-MDRD 33; Glucose 153 mg/dL (80-115); Potassium 4.6 mmol/L (3.5-5.1); Sodium 140 mmol/L (136-145)
[2019-12-17] MEDS: Aspirin 81 mg Enteric Coated Tablet PO SCH (07:34)
[2019-12-17] MEDS: Metoprolol Tartrate 25 MG TAB PO SCH ×2 (07:34→20:34)
[2019-12-17] MEDS: Alogliptin 6.25 MG TAB PO SCH (07:34)
[2019-12-17 15:04] LABS: SARS-CoV-2 MS2 Positive; SARS-CoV-2 N Gene Negative; SARS-CoV-2 S Gene Negative; SARS-CoV-2 orf1ab Negative
--- NOTE | 2019-12-17 17:14 | PDOC.HOSPP ---
- Subjective Encounter Date: 12/17/19 Encounter Time: 17:12 Subjective: Pt seen for followup re: CHF. Feels slightly better today. No fevers. Cough+ . SOBOE is better. - Objective Vital Signs & Weight: Vital Signs (12 hours) Temp Pulse Resp BP Pulse Ox 12/17/19 16:00 98.2 F 78 18 141/75 H 96 12/17/19 12:00 98.3 F 75 18 154/80 H 96 12/17/19 07:51 98.3 F 78 20 143/69 H 94 L Weight Weight 204 lb 11.2 oz I&O: 12/16/19 12/17/19 12/18/19 06:59 06:59 06:59 Intake Total 1204 Output Total 1900 Balance -696 Result Diagrams: 12/17/19 04:52 12/17/19 04:52 Additional Labs: Accuchecks 12/17/19 12/17/19 12/16/19 11:09 05:14 23:06 POC Glucose 180 H 155 H 224 H 12/16/19 12/16/19 19:16 15:33 POC Glucose 202 H 139 H Labs and MARs reviewed by me EKG Reviewed by me: Yes (Tele: NSR) Hospitalist ROS - Review of Systems Respiratory: reports: cough, dry. denies: shortness of breath, hemoptysis, SOB with excertion, pleuritic pain, sputum, wheezing Cardiovascular: reports: orthopnea. denies: chest pain, palpitations, paroxysmal noc. dyspnea, edema, light headedness - Medication Medications: Active Medications Generic Name Dose Route Start Last Admin Trade Name Freq PRN Reason Stop Dose Admin Alogliptin Benzoate 12.5 mg 12/17/19 09:00 12/17/19 07:34 Alogliptin PO 12.5 mg DAILY JOSEPH Administration Aspirin 81 mg 12/17/19 09:00 12/17/19 07:34 Ecotrin PO 81 mg DAILY JOSEPH Administration Furosemide 40 mg 12/16/19 14:00 12/17/19 11:00 Lasix SLOW IVP 40 mg 0600,1400 JOSEPH Administration Metoprolol Tartrate 25 mg 12/16/19 21:00 12/17/19 07:34 Lopressor PO 25 mg BID JOSEPH Administration Sodium Chloride 10 ml 12/16/19 09:00 12/17/19 07:34 Flush - Normal Saline IVF 10 ml Q12HR JOSEPH Administration Sodium Chloride 10 ml 12/16/19 08:08 12/17/19 05:05 Flush - Normal Saline IVF 10 ml PRN PRN Administration Saline Flush - Exam General Appearance: awake alert Eye: anicteric sclera ENT: moist mucosa Neck: supple Heart: RRR Respiratory: no wheezes, rales Gastrointestinal: soft, non-tender Extremities: 1+ LE edema Psychiatric: normal affect, normal behavior Hosp A/P (1) Acute CHF (congestive heart failure) Code(s): I50.9 - HEART FAILURE, UNSPECIFIED Status: Acute (2) HTN (hypertension) Code(s): I10 - ESSENTIAL (PRIMARY) HYPERTENSION Status: Chronic Qualifiers: Hypertension type: essential hypertension Qualified Code(s): I10 - Essential (primary) hypertension (3) DM2 (diabetes mellitus, type 2) Status: Chronic - Plan out of bed/ambulate, DVT proph w/SCDs Pt has clinically improved, continue IV furosemide. Monitor creatinine and lytes. COVID 19 ruled out. Pt does not have fever or leucocytosis, CXR findings most likely due to new onset CHF. Await 2D echo. Consult cardiology in AM for new onset CHF. Change to moderate insulin sliding scale. Monitor vital signs and titrate antihypertensives as needed.
[2019-12-17] MEDS ORDERED: HumaLOG 300 UNITS/3 ML VIAL SC PRN (17:16)
[2019-12-18 03:59] LABS: #Basophils 0.1 thou/uL (0.0-0.2); #Eosinphils 0.2 thou/uL (0.0-0.7); %Eosinophils 2.9 % (0.0-10.0); %Lymphocytes 23.7 % (21.0-51.0); %Monocytes 12.2 % (0.0-10.0); %Neutrophils 60.2 % (42.0-75.0); Hemoglobin 9.5 g/dL (14.0-18.0); Mean Corpuscular HGB CONC 31.3 g/dL (32.0-36.0); Mean Corpuscular Hemoglobin 30.9 pg (27.0-31.0); Mean Corpuscular Volume 98.7 fL (78.0-98.0); Mean Platelet Volume 9.1 fL (7.4-10.4); Platelet Count 198 thou/uL (130-400); Red Blood Cell (RBC) Count 3.08 mill/uL (4.70-6.10); White Blood Cell (WBC) Count 8.4 thou/uL (4.8-10.8)
[2019-12-18 04:14] LABS: Anion Gap 16 mmol/L (10-20); BUN (Urea Nitrogen) 32 mg/dL (8.4-25.7); Calc. Creatinine Clearance 38 mL/min (70-130); Calcium 8.1 mg/dL (7.8-10.44); Carbon Dioxide 26 mmol/L (23-31); Chloride 100 mmol/L (98-107); Estimated GFR-MDRD 26; Glucose 229 mg/dL (80-115); Potassium 4.6 mmol/L (3.5-5.1); Sodium 137 mmol/L (136-145)
[2019-12-18] MEDS: Furosemide 40 MG/4 ML VIAL SLOW IVP SCH ×2 (05:22→14:52)
--- NOTE | 2019-12-18 09:09 | ULT ---
Renal sonogram HISTORY: Acute renal insufficiency. FINDINGS: The right kidney is 11.4 cm length and the left is 12.0 cm. Mild lobulation of the cortex o f each kidney. No evidence of mass, stone, or hydronephrosis. Urinary bladder has a normal appearance. IMPRESSION : No abnormalities are demonstrated.
[2019-12-18] MEDS: Alogliptin 6.25 MG TAB PO SCH (09:28)
[2019-12-18] MEDS: Aspirin 81 mg Enteric Coated Tablet PO SCH (09:28)
[2019-12-18] MEDS: Metoprolol Tartrate 25 MG TAB PO SCH ×2 (09:28→19:25)
[2019-12-18 10:31] LABS: Bacteria/HPF None Seen HPF (None Seen); Bilirubin Negative (Negative); Blood, Urine Negative (Negative); Clarity Clear (Clear); Glucose, Urine (Dipstick) 50 mg/dL (Negative); Ketone, Urine Negative (Negative); Leukocyte Negative Leu/uL (Negative); Nitrite Negative (Negative); Protein, Urine (Dipstick) Negative (Neg-Trace); RBC/HPF 0-3 HPF (0-3); Specific Gravity, Urine 1.008 (1.002-1.036); Squamous Epithelial None Seen HPF (0-3); Urobilinogen Normal mg/dL (Less than 2); WBC/HPF 0-3 HPF (0-3)
[2019-12-18 10:50] LABS: Creatinine, Urine 40.94 mg/dL (63-166); Protein, Urine Random Quant Less than 10 mg/dL (1-14); Sodium, Urine 124 mmol/L (Not Available)
[2019-12-18 13:29] VITALS: BMI 26.2
--- NOTE | 2019-12-18 15:49 | CON ---
DATE OF CONSULTATION: 12/18/2019 SERVICE: Nephrology. REASON FOR CONSULTATION: Elevated creatinine. REQUESTING PHYSICIAN: Oscar Swanson MD HISTORY OF PRESENT ILLNESS: A 64-year-old male patient with known history of congestive heart failure, CKD, admitted on December 15 due to worsening shortness of breath. The patient was felt to have acute on chronic CHF and started on diuretic therapy. Hospital course was complicated by acute increase in creatinine above baseline, hence Nephrology consulted. The patient with diabetes mellitus, hypertension, COPD, was noted to have chronic kidney disease since 2014 but has not followed up with any or director. He reports feeling better and leg swelling has improved. Denied nausea, vomiting, abdominal pain, or difficulty urination. Also, denied hematemesis, hematuria, tremors, headache. Appetite has improved. PAST MEDICAL HISTORY: 1. Diabetes mellitus type 2. 2. Hypertension. 3. COPD. 4. Chronic kidney disease. 5. Diabetic neuropathy. 6. Congestive heart failure. 7. Mild mitral regurgitation. 8. Mild tricuspid regurgitation. 9. Coronary artery disease, status post recent [id number] myocardial infarction. 10. Recent sepsis due to left lower lobe pneumonia. PAST SURGICAL HISTORY: Left arm surgery. FAMILY HISTORY: There is significant history of heart disease among several family members. SOCIAL HISTORY: The patient lives with family. He is a never smoker. He also does not drink alcohol or use recreational drugs. He, however, reportedly worked in a [employer]. ALLERGIES: NO KNOWN DRUG ALLERGIES REPORTED. HOME MEDICATIONS: 1. Trulicity 1.5 every 7 days. 2. Metoprolol 25 mg p.o. b.i.d. 3. Januvia 50 mg p.o. daily. 4. Aspirin 81 mg p.o. daily. REVIEW OF SYSTEMS: 12-point review of systems performed, was negative other than pertinent positives and negatives included in the history of present illness. PHYSICAL EXAMINATION: VITAL SIGNS: Temperature 98.1, pulse 80, respiratory rate 18, SpO2 of 95% on room air, and blood pressure is 131/76. Intake and output in the last 24 hours showed total intake of 1010 with total output of 1850. GENERAL: Fatigued, middle-age male in no obvious distress noted. Afebrile. Anicteric. Acyanotic. HEENT: Normocephalic, atraumatic. Oral mucosa is moist. NECK: Supple with no obvious JVD. CARDIOVASCULAR: Regular rhythm and rate with normal heart sounds 1 and 2. RESPIRATORY: Fair air entry bilaterally with a few scattered crackles especially both bases, more on the left. However, there is no respiratory distress or rhonchi. GI: Full, soft, nontender, nondistended with normal bowel sounds. MUSCULOSKELETAL: Mild bilateral leg edema noted. Otherwise, extremities are grossly normal looking, atraumatic with no obvious edema. CHECKERER HAND: Conscious, alert, oriented x3 with appropriate mental status. Cranial nerves 2 through 12 are grossly intact. DIAGNOSTIC DATA: CBC today showed WBC count of 8.4, hemoglobin of 9.5, MCV of 98.7, and platelets of 198. BMP showed sodium 137, potassium 4.6, chloride 100, CO2 of 26, BUN 32, creatinine 2.48, glucose 228, calcium 8.1. On admission, on December 15, CMP showed sodium 140, potassium 4.5, chloride 106, CO2 of 26, BUN 30, creatinine 2.18, glucose 364, calcium 7.9, total bilirubin 0.3, AST 17, ALT 23, alkaline phosphatase 68, total protein 6.3, albumin 3.0, and globulin 3.3. Review of medical records showed that baseline creatinine ranges from 1.6 to 1.9 with discharge creatinine of 1.80 on December 07, 2019. The patient also has a chronic elevation in creatinine with creatinine of 2.75 on March 20, 2019. On presentation, B-natriuretic peptide was 1398. Chest x-ray on presentation showed a worsening perihilar airspace disease as well as findings suspicious for worsening edema or pneumonia, as well as mild pulmonary vascular congestion and a small bilateral pleural effusion. ASSESSMENT: 1. Acute kidney injury: Due to hemodynamic factors related to diuretic therapy as well as cardiac decompensation. It is mostly related to intravascular contraction related to diuretic therapy. 2. Chronic kidney disease stage 3/4 with baseline creatinine of 1.6 to 2.0. This is due to hypertension and diabetic nephropathy. The patient was told he had chronic kidney disease in 2014, but has not followed up with anybody. Creatinine today is still trending up. 3. Volume overload/edema: Due to cardiac decompensation. Clinically improved with diuretics. 4. Hypertension: Control is acceptable. 5. Anemia: Multifactorial from anemia of acute illness superimposed on anemia of chronic kidney disease. 6. Physical deconditioning. 7. Hyperglycemia/diabetes mellitus. PLAN: 1. We will get urine electrolytes, urinalysis as well as renal ultrasound. 2. We will continue diuretic therapy for now as the patient still has some features of fluid overload. We will, however, transition from IV to oral Lasix with a view to preparing the patient for discharge. 3. We will continue cardiac diet/reduced salt intake. Further treatment to follow depending on review of other diagnostic tests. Job ID: [id number]
[2019-12-18] MEDS: Furosemide 40 MG TAB PO SCH (16:33)
--- NOTE | 2019-12-18 17:53 | PDOC.HOSPP ---
- Subjective Encounter Date: 12/18/19 Encounter Time: 11:00 Subjective: Pt seen for followup re:CHF exacerbation. No chest pain. Cough+ - Objective Vital Signs & Weight: Vital Signs (12 hours) Temp Pulse Resp BP Pulse Ox 12/18/19 16:29 98.3 F 76 18 148/75 H 98 12/18/19 12:22 98.3 F 82 18 125/59 L 96 12/18/19 07:47 98.1 F 80 18 131/76 95 12/18/19 07:06 94 L Weight Admit Weight 212 lb 5 oz Weight 199 lb I&O: 12/17/19 12/18/19 12/19/19 06:59 06:59 06:59 Intake Total 1204 1010 Output Total 1900 1850 Balance -256 840 Result Diagrams: 12/18/19 03:29 12/18/19 03:29 Additional Labs: Accuchecks 12/18/19 12/18/19 11:18 05:21 POC Glucose 299 H 250 H Labs and MARs reviewed by dc Hospitalist ROS - Review of Systems Respiratory: reports: SOB with excertion Cardiovascular: reports: orthopnea. denies: chest pain, palpitations, paroxysmal noc. dyspnea, edema, light headedness Gastrointestinal: denies: nausea, vomiting, abdominal pain, diarrhea, constipation, melena, hematochezia - Medication Medications: Active Medications Generic Name Dose Route Start Last Admin Trade Name Freq PRN Reason Stop Dose Admin Alogliptin Benzoate 12.5 mg 12/17/19 09:00 12/18/19 09:28 Alogliptin PO 12.5 mg DAILY JOSEPH Administration Aspirin 81 mg 12/17/19 09:00 12/18/19 09:28 Ecotrin PO 81 mg DAILY JOSEPH Administration Furosemide 40 mg 12/18/19 16:00 12/18/19 16:33 Lasix PO 40 mg 0900,1600 JOSEPH Administration Insulin Human Lispro 0 units 12/17/19 17:16 12/18/19 12:23 Humalog SC 6 unit .MODERATE SLIDING SC PRN Administration Moderate Correctional Scale Metoprolol Tartrate 25 mg 12/16/19 21:00 12/18/19 09:28 Lopressor PO 25 mg BID JOSEPH Administration Sodium Chloride 10 ml 12/16/19 09:00 06/29/20 09:28 Flush - Normal Saline IVF 10 ml Q12HR JOSEPH Administration Sodium Chloride 10 ml 12/16/19 08:08 12/17/19 05:05 Flush - Normal Saline IVF 10 ml PRN PRN Administration Saline Flush - Exam General Appearance: awake alert Eye: anicteric sclera ENT: normocephalic atraumatic Neck: supple Heart: RRR Respiratory: rales Gastrointestinal: soft, non-tender Skin: no rashes Psychiatric: normal affect, normal behavior Hosp A/P (1) Acute CHF (congestive heart failure) Code(s): I50.9 - HEART FAILURE, UNSPECIFIED Status: Acute (2) Acute worsening of stage 3 chronic kidney disease Code(s): N18.3 - CHRONIC KIDNEY DISEASE, STAGE 3 (MODERATE) Status: Acute (3) HTN (hypertension) Code(s): I10 - ESSENTIAL (PRIMARY) HYPERTENSION Status: Chronic Qualifiers: Hypertension type: essential hypertension Qualified Code(s): I10 - Essential (primary) hypertension (4) DM2 (diabetes mellitus, type 2) Status: Chronic - Plan Swithc to oral furosemide. Consult rephrology for ac on ch stage 3 renal failure. COVID 19 ruled out. No evidence of pneumonia. Await 2D echo. Change to aggressive insulin sliding scale. Monitor vital signs and titrate antihypertensives as needed.
[2019-12-19 04:26] LABS: #Basophils 0.1 thou/uL (0.0-0.2); #Eosinphils 0.3 thou/uL (0.0-0.7); #Lymphocytes 1.9 thou/uL (1.20-3.40); #Monocytes 0.9 thou/uL (0.11-0.59); #Neutrophils 5.4 thou/uL (1.40-6.50); %Basophils 1.2 % (0.0-1.0); %Eosinophils 3.3 % (0.0-10.0); %Lymphocytes 21.7 % (21.0-51.0); %Monocytes 10.8 % (0.0-10.0); %Neutrophils 63.1 % (42.0-75.0); Hemoglobin 9.7 g/dL (14.0-18.0); Mean Corpuscular HGB CONC 32.7 g/dL (32.0-36.0); Mean Corpuscular Hemoglobin 31.5 pg (27.0-31.0); Mean Corpuscular Volume 96.1 fL (78.0-98.0); Mean Platelet Volume 8.6 fL (7.4-10.4); Platelet Count 200 thou/uL (130-400); Red Blood Cell (RBC) Count 3.08 mill/uL (4.70-6.10); White Blood Cell (WBC) Count 8.5 thou/uL (4.8-10.8)
[2019-12-19 04:45] LABS: Anion Gap 15 mmol/L (10-20); BUN (Urea Nitrogen) 35 mg/dL (8.4-25.7); Calc. Creatinine Clearance 38 mL/min (70-130); Calcium 8.4 mg/dL (7.8-10.44); Carbon Dioxide 29 mmol/L (23-31); Chloride 96 mmol/L (98-107); Estimated GFR-MDRD 27; Glucose 203 mg/dL (80-115); Sodium 136 mmol/L (136-145)
[2019-12-19] MEDS: Alogliptin 6.25 MG TAB PO SCH (09:18)
[2019-12-19] MEDS: Furosemide 40 MG TAB PO SCH (09:18)
[2019-12-19] MEDS: Aspirin 81 mg Enteric Coated Tablet PO SCH (09:18)
[2019-12-19] MEDS: Metoprolol Tartrate 25 MG TAB PO SCH ×2 (09:19→19:57)
[2019-12-19] MEDS ORDERED: Regadenoson 0.4 MG/5 ML SYRINGE ONE (09:29)
--- NOTE | 2019-12-19 13:50 | PRG ---
DATE OF SERVICE: 12/19/2019 SERVICE: Nephrology. SUBJECTIVE: A 64-year-old male seen in followup for acute on chronic kidney injury. The patient reports feeling better. Swelling has improved markedly. Shortness of breath also has improved and the patient is off oxygen. Denied fever, nausea, or vomiting. The patient is for stress test today. OBJECTIVE: VITAL SIGNS: Temperature 98.7, pulse 80, respiratory rate 16, SpO2 of 92% on room air, blood pressure 128/59. I and O in the last 24 hours showed total intake of 720 mL with total output of 1950. Weight is also down to 193 from admission level of 212. GENERAL: Comfortable male patient in no obvious distress. Afebrile. Anicteric. Acyanotic. HEENT: Normocephalic, atraumatic. Oral mucosa is moist. CARDIOVASCULAR: Regular rhythm and rate with normal heart sounds 1 and 2. RESPIRATORY: Good air entry bilaterally with few bibasilar crackles posteriorly. No respiratory distress appreciated. GI: Full, soft, nontender, nondistended with normal bowel sounds. EXTREMITIES: Grossly normal looking atraumatic with no edema or erythema. RESEARCH SOIL SCIENTIST: Conscious, alert, and oriented x3 with appropriate mental status. Cranial nerves 2 through 12 are grossly intact. LABORATORY DATA: CBC showed WBC count of 8.5, hemoglobin of 9.7, platelets of 200. Chemistry showed sodium of 136, potassium 4.0, chloride 96, CO2 of 29, BUN 35, creatinine 2.43, glucose 203, calcium 8.4. ASSESSMENT: 1. Acute kidney injury: Due to hemodynamic factors related to cardiac decompensation and diuretic therapy. BUN and creatinine are trending up due to intravascular contraction related to diuretic therapy. 2. Volume overload: Due to congestive heart failure exacerbation. Markedly improved with diuretics. Weight is down to 193 from 212. 3. Hypertension: Control is acceptable. 4. Chronic kidney disease, stage 3B: Due to hypertension and diabetes. 5. Acute on chronic cardiac failure: Etiology is unclear. Evaluation is being undertaken by Cardiology. PLAN: 1. We will decrease diuretics further due to worsening azotemia. We will change from 40 p.o. b.i.d. to 40 daily. 2. We will recheck renal function in the morning. Further treatment to follow depending on hospital course. Job ID: [id number]
--- NOTE | 2019-12-19 14:23 | CON ---
DATE OF CONSULTATION: 12/19/2019 SUBJECTIVE: Mr. Kingsley has done well. No current complaints. His shortness of breath has improved. His LVEF did appear diminished. After further discussion with Mr. Kingsley, he states he underwent coronary angiography 5 years ago and was found to have significant blockage, but could not be addressed. This may correspond with akinesis involving the inferior wall suggesting previous RCA occlusion or infarct. He is fairly vague about the findings. OBJECTIVE: VITAL SIGNS: Blood pressure 140/76, pulse 70, temperature 98. LUNGS: Clear to auscultation. HEART: Regular rate and rhythm. ABDOMEN: Soft, nontender, nondistended. EXTREMITIES: No edema. PERTINENT LABORATORY DATA: Hemoglobin 9.7, hematocrit 29.6, white blood cell count 8.5. Creatinine is 2.43, which is slightly improved from 2.48. IMPRESSION: 1. Acute on chronic systolic heart failure. 2. Coronary artery disease. 3. Recent pneumonia. 4. Acute on chronic renal insufficiency. RECOMMENDATIONS: At this point, recommend noninvasive stress study to assess for any areas of ischemia. If felt to be low risk, we will continue with medical therapy. If felt to be high risk, we will then proceed with coronary angiography, although there is a risk of contrast nephropathy. I did discuss with Mr. Kingsley. Further recommendations pending the above. Job ID: [id number]
--- NOTE | 2019-12-19 15:49 | NM ---
Exam: Vertigo medicine cardiac stress with EF and wall motion HISTORY: Chest pain COMPARISON: None TECHNIQUE: Patient was ministered 10.5 mCi of technetium 9M sestamibi for rest imaging and 29.90 mCi of technetium 99m sestamibi for stress imaging. Cardiac gating is performed FINDINGS: Homogeneous distribution of the radiotracer. No reversibility or fixed defect. TID is 1.09 End-diastolic volume is 130 mL End-systolic volume is 89 mL Cardiac gating: Global hypokinesis. 31% ejection fraction IMPRESSION: 1. No reversibility or fixed defect 2. Global hypokinesis. 31% ejection fraction.
--- NOTE | 2019-12-19 17:31 | PDOC.HOSPP ---
- Subjective Encounter Date: 12/19/19 Encounter Time: 17:29 Subjective: Pt seen for followup for cardiomyopathy. Feels better. Cough is better. - Objective Vital Signs & Weight: Vital Signs (12 hours) Temp Pulse Pulse Pulse Resp BP BP 12/19/19 15:45 97.4 F L 86 18 12/19/19 11:54 98.0 F 78 19 12/19/19 09:48 85 82 128/59 L 134/69 12/19/19 08:32 12/19/19 07:57 98.7 F 80 16 BP Pulse Ox Pulse Ox Pulse Ox 12/19/19 15:45 126/67 97 12/19/19 11:54 140/76 93 L 12/19/19 09:48 92 L 94 L 12/19/19 08:32 92 L 12/19/19 07:57 128/59 L 92 L Weight Admit Weight 212 lb 5 oz Weight 193 lb 9 oz I&O: 12/18/19 12/19/19 12/20/19 06:59 06:59 06:59 Intake Total 1010 720 Output Total 1850 1950 Balance -840 -1230 Result Diagrams: 12/19/19 03:51 12/19/19 03:51 Additional Labs: Accuchecks 12/19/19 12/19/19 12/19/19 16:37 10:27 06:01 POC Glucose 258 H 257 H 258 H 12/18/19 12/18/19 20:29 18:30 POC Glucose 188 H 102 labs and MARs reviewed by me EKG Reviewed by me: Yes (Tele: NSR) Hospitalist ROS - Review of Systems Respiratory: reports: cough, dry, SOB with excertion Cardiovascular: denies: chest pain, palpitations, orthopnea, paroxysmal noc. dyspnea, edema, light headedness Gastrointestinal: denies: nausea, vomiting, abdominal pain, diarrhea, constipation, melena, hematochezia - Medication Medications: Active Medications Generic Name Dose Route Start Last Admin Trade Name Freq PRN Reason Stop Dose Admin Alogliptin Benzoate 12.5 mg 12/17/19 09:00 12/19/19 09:18 Alogliptin PO 12.5 mg DAILY JOSEPH Administration Aspirin 81 mg 12/17/19 09:00 12/19/19 09:18 Ecotrin PO 81 mg DAILY JOSEPH Administration Metoprolol Tartrate 25 mg 12/16/19 21:00 12/19/19 09:19 Lopressor PO Not Given BID JOSEPH Sodium Chloride 10 ml 12/16/19 09:00 12/19/19 09:18 Flush - Normal Saline IVF 10 ml Q12HR JOSEPH Administration Sodium Chloride 10 ml 12/16/19 08:08 12/17/19 05:05 Flush - Normal Saline IVF 10 ml PRN PRN Administration Saline Flush - Exam General Appearance: awake alert Eye: anicteric sclera ENT: normocephalic atraumatic, no oropharyngeal lesions Neck: supple Heart: RRR Respiratory: no wheezes, rales Gastrointestinal: soft, non-tender Extremities: no cyanosis Psychiatric: normal affect, normal behavior Hosp A/P (1) Cardiomyopathy Code(s): I42.9 - CARDIOMYOPATHY, UNSPECIFIED Status: Acute (2) Acute CHF (congestive heart failure) Code(s): I50.9 - HEART FAILURE, UNSPECIFIED Status: Acute (3) Acute worsening of stage 3 chronic kidney disease Code(s): N18.3 - CHRONIC KIDNEY DISEASE, STAGE 3 (MODERATE) Status: Acute (4) HTN (hypertension) Code(s): I10 - ESSENTIAL (PRIMARY) HYPERTENSION Status: Chronic Qualifiers: Hypertension type: essential hypertension Qualified Code(s): I10 - Essential (primary) hypertension (5) DM2 (diabetes mellitus, type 2) Status: Chronic - Plan No evidence of ischemia on stress test, LVEF depressed. creatinine stabilizing, 2.43 today COVID 19 ruled out. Continue aggressive insulin sliding scale. HTN controlled
[2019-12-19] MEDS: HumaLOG 300 UNITS/3 ML VIAL SC PRN ×2 (18:05→23:05)
[2019-12-20] MEDS: HumaLOG 300 UNITS/3 ML VIAL SC PRN ×4 (06:19→20:41)
[2019-12-20] MEDS: Alogliptin 6.25 MG TAB PO SCH (08:07)
[2019-12-20] MEDS: Aspirin 81 mg Enteric Coated Tablet PO SCH (08:07)
[2019-12-20] MEDS: Metoprolol Tartrate 25 MG TAB PO SCH (08:07)
[2019-12-20] MEDS ORDERED: Furosemide 40 MG TAB PO SCH (09:00)
[2019-12-20 09:47] LABS: Albumin 3.3 g/dL (3.4-4.8); Anion Gap 13 mmol/L (10-20); BUN (Urea Nitrogen) 36 mg/dL (8.4-25.7); BUN/Creatinine Ratio 13.79; Calc. Creatinine Clearance 34 mL/min (70-130); Calcium 8.5 mg/dL (7.8-10.44); Carbon Dioxide 30 mmol/L (23-31); Chloride 99 mmol/L (98-107); Estimated GFR-MDRD 25; Glucose 189 mg/dL (80-115); Phosphorus 3.4 mg/dL (2.3-4.7); Potassium 4.2 mmol/L (3.5-5.1); Sodium 138 mmol/L (136-145)
--- NOTE | 2019-12-20 17:07 | PDOC.HOSPP ---
- Subjective Encounter Date: 12/20/19 Encounter Time: 17:04 Subjective: Pt seen for followup - cardiomyopathy. Feels better today. No chest pain. - Objective Vital Signs & Weight: Vital Signs (12 hours) Temp Pulse Resp BP Pulse Ox 12/20/19 16:15 99.6 F 84 20 137/72 93 L 12/20/19 11:23 98.4 F 85 18 119/58 L 97 12/20/19 07:36 93 L 12/20/19 07:33 98.1 F 84 18 137/72 94 L Weight Admit Weight 212 lb 5 oz Weight 190 lb 1.6 oz I&O: 12/19/19 12/20/19 12/21/19 06:59 06:59 06:59 Intake Total 720 1020 Output Total 1950 1210 Balance -1230 -190 Result Diagrams: 12/19/19 03:51 12/20/19 09:13 Additional Labs: Accuchecks 12/20/19 12/20/19 12/19/19 10:32 05:44 20:44 POC Glucose 224 H 209 H 190 H 12/19/19 16:37 POC Glucose 258 H Hospitalist ROS - Review of Systems Gastrointestinal: denies: nausea, vomiting, abdominal pain, diarrhea, constipation, melena, hematochezia Genitourinary: denies: dysuria, frequency, incontinence, hematuria, retention - Medication Medications: Active Medications Generic Name Dose Route Start Last Admin Trade Name Freq PRN Reason Stop Dose Admin Alogliptin Benzoate 12.5 mg 12/17/19 09:00 12/20/19 08:07 Alogliptin PO 12.5 mg DAILY JOSEPH Administration Aspirin 81 mg 12/17/19 09:00 12/20/19 08:07 Ecotrin PO 81 mg DAILY JOSEPH Administration Insulin Human Lispro 0 units 12/18/19 18:00 12/20/19 16:44 Humalog SC 3 unit .AGGRESSIVE SLIDING PRN Administration Aggressive Correctional Scale Sodium Chloride 10 ml 12/16/19 09:00 12/20/19 08:08 Flush - Normal Saline IVF 10 ml Q12HR JOSEPH Administration Sodium Chloride 10 ml 12/16/19 08:08 12/17/19 05:05 Flush - Normal Saline IVF 10 ml PRN PRN Administration Saline Flush - Exam General Appearance: awake alert Eye: anicteric sclera ENT: moist mucosa Neck: supple Heart: RRR Respiratory: CTAB Gastrointestinal: soft, non-tender Musculoskeletal: no muscle wasting Psychiatric: normal affect, normal behavior Hosp A/P (1) Cardiomyopathy Code(s): I42.9 - CARDIOMYOPATHY, UNSPECIFIED Status: Acute (2) Acute CHF (congestive heart failure) Code(s): I50.9 - HEART FAILURE, UNSPECIFIED Status: Acute (3) Acute worsening of stage 3 chronic kidney disease Code(s): N18.3 - CHRONIC KIDNEY DISEASE, STAGE 3 (MODERATE) Status: Acute (4) HTN (hypertension) Code(s): I10 - ESSENTIAL (PRIMARY) HYPERTENSION Status: Chronic Qualifiers: Hypertension type: essential hypertension Qualified Code(s): I10 - Essential (primary) hypertension (5) DM2 (diabetes mellitus, type 2) Status: Chronic - Plan Pt awaiting insurance authorization for Lifevest. Pt to follow up with nephrology as outpt. COVID 19 ruled out. Pt is on aggressive insulin sliding scale. HTN controlled
--- NOTE | 2019-12-20 18:02 | PRG ---
DATE OF SERVICE: 12/20/2019 SUBJECTIVE: Mr. Kingsley still is improving. He states he continues to have mild shortness of breath, but is improved. His stress study did suggest LVEF of 31%. No ischemia present. Creatinine unfortunately continues to increase. His creatinine went from 2.4 to 2.6. He has had a baseline creatinine from his prior hospitalizations of 1.65 on 12/06/2019. OBJECTIVE: GENERAL: Patient is a pleasant male, who is in no acute distress. The patient appears their stated age. VITAL SIGNS: Blood pressure 137/72, pulse 84, and temperature 98.1. Weight down from 212 to . NEUROLOGIC: The patient is alert and oriented x3 with no focal neurologic deficits. HEENT: Sclerae without icterus. Mouth has moist mucous membranes with normal pallor. NECK: No JVD. Carotid upstroke brisk. No bruits bilaterally. LUNGS: Crackles noted on left versus right. BACK: No scoliosis or kyphosis. CARDIAC: Regular rate and rhythm with normal S1 and S2. No S3 or S4 noted. No significant rubs, murmurs, thrills, or gallops noted throughout the precordium. PMI is not displaced. There is no parasternal heave. ABDOMEN: Soft, nontender, nondistended. No peritoneal signs present. No hepatosplenomegaly. No abnormal striae. EXTREMITIES: 2+ femoral and 2+ dorsalis pedis pulses. No cyanosis, clubbing, or edema. SKIN: No gross abnormalities. IMPRESSION: 1. Nonischemic cardiomyopathy. 2. Shortness of breath. 3. Acute on chronic renal insufficiency. RECOMMENDATIONS: 1. Change metoprolol tartrate to Coreg. 2. Add low-dose Imdur given underlying renal function. 3. Avoid KAN inhibitor therapy and ARB due to renal insufficiency. 4. Diuretic therapy, managed by Nephrology. 5. Recommend LifeVest. Risks and benefits of LifeVest have been discussed with Mr. Kingsley and he is agreeable. 6. I would recommend continued conservative therapy given no current symptoms and negative enzymes. Job ID: [id number]
--- NOTE | 2019-12-20 18:02 | PRG ---
DATE OF SERVICE: 12/20/2019 SERVICE: Nephrology. SUBJECTIVE: A 64-year-old male, seen in followup for acute on chronic renal failure. No new problem. Denied nausea, vomiting, or edema. Reported exertional dyspnea, however. OBJECTIVE: VITAL SIGNS: Temperature 98.1, pulse 84, respiratory rate 18, SpO2 of 94% on room air, and blood pressure is 137/72. I and O in the last 24 hours showed total intake of 1020 with total output of 1210. Weight is down to 190 from 212 at presentation. GENERAL: Comfortable, middle-aged male, in no obvious distress. Afebrile, acyanotic. HEENT: Normocephalic, atraumatic. Oral mucosa is moist. NECK: Supple with no JVD. CARDIOVASCULAR: Regular rhythm and rate with normal heart sounds 1 and 2. RESPIRATORY: Fair air entry bilateral with a few bibasilar crackles posteriorly, especially on the left side. No obvious rhonchi or use of accessory muscles appreciated. GI: Full, soft, nontender, nondistended with normal bowel sounds. MUSCULOSKELETAL: Grossly normal-looking extremities with no edema or erythema. MANAGER PROVIDER RELATIONS: Conscious and alert and oriented x3 with appropriate mental status. Cranial nerves 2 through 12 are grossly intact. DIAGNOSTIC DATA: Chemistry showed sodium 138, potassium 4.2, chloride 99, CO2 of 30, BUN 36, creatinine 2.61, glucose 189, calcium 8.5, phosphorus 3.4, and albumin 3.3. Nuclear stress test performed yesterday showed global hypokinesis with EF of 31%, but no reversible or fixed defect. ASSESSMENT: 1. Acute kidney injury: Due to hemodynamic factors related to intravascular contraction and diuretic use. 2. Chronic kidney disease, stage 3, due to hypertension and diabetes. 3. Hypertension: Control is acceptable. 4. Diabetes mellitus with hyperglycemia. 5. Acute on chronic systolic heart failure. 6. Volume overload: Markedly improved with diuretics. The patient is euvolemic if not clinically dry currently. 7. Anemia of chronic kidney disease. PLAN: 1. We will hold diuretics at this point due to worsening azotemia and alkalosis. We will recheck renal function in the morning. 2. Continue salt and fluid restriction. 3. Further evaluation and treatment of acute on chronic heart failure as per Cardiology. Job ID: [id number]
[2019-12-20] MEDS: Carvedilol 6.25 MG TAB PO SCH (20:39)
[2019-12-21] MEDS: HumaLOG 300 UNITS/3 ML VIAL SC PRN ×2 (06:09→12:16)
[2019-12-21] MEDS: Aspirin 81 mg Enteric Coated Tablet PO SCH (08:30)
[2019-12-21] MEDS: Carvedilol 6.25 MG TAB PO SCH (08:30)
[2019-12-21] MEDS: Alogliptin 6.25 MG TAB PO SCH (08:30)
--- NOTE | 2019-12-21 10:31 | DIS ---
DATE OF ADMISSION: 12/16/2019 DATE OF DISCHARGE: 12/21/2019 PRIMARY CARE PROVIDER: Amparo Jarrett PA-C DISCHARGE DIAGNOSES: 1. Acute systolic congestive heart failure, [place] Heart Association class III. 2. [id number] stage 3 renal failure. 3. New onset cardiomyopathy. CONDITION OF PATIENT ON THE DAY OF DISCHARGE: Stable. I assessed Mr. Kingsley on the day of discharge. He denies any chest pain or shortness of breath. PHYSICAL EXAMINATION: VITAL SIGNS: Stable. HEART: S1 and S2 are heard, regular. LUNGS: Clear to auscultation bilaterally. CONSULTATIONS DURING THIS HOSPITALIZATION: 1. Cardiology, Dr. Ritchie. 2. Nephrology, Dr. Aguilera. HOSPITAL COURSE: Mr. Kingsley is a pleasant 64-year-old gentleman, who was admitted to [facility] on December 16, 2019, for shortness of breath. He was ruled out for COVID virus. He was found to be in congestive heart failure. He was seen by Cardiology Service. He received intravenous diuretics. He also had 2D echocardiogram. He went on to have a nuclear stress test, which did not show any reversibility of fixed defect. He had global hypokinesis, with 31% ejection fraction. Cardiology Service recommended LifeVest. He was also switched to Coreg. He had [id number] renal failure, likely secondary to diuretics. He was seen by Nephrology Service. He has been advised to follow up with Nephrology Service as outpatient. DISCHARGE MEDICATIONS: 1. Trulicity 1.5 mg subcutaneously every week. 2. Januvia 50 mg daily. 3. Aspirin 81 mg daily. 4. Coreg 3.125 mg 2 times a day. 5. Furosemide 20 mg daily. 6. Isosorbide mononitrate 30 mg daily. ACTIVITY: No restrictions. DIET: Heart healthy, low sodium, diabetic, and renal. POSTACUTE CARE FOLLOWUP: With primary care provider in 3 days DISCHARGE DESTINATION: Home. LABORATORY DATA: On December 18, he had white count 8500, hemoglobin 9.7, and platelet count 200,000. On December 19, he had sodium 138, potassium 4.2, and creatinine 2.61. Many thanks for allowing me to participate in your patient's care. Please feel free to contact me with any questions or concerns. Job ID: [id number] [facility]
--- NOTE | 2019-12-21 17:01 | PRG ---
DATE OF SERVICE: 12/21/2019 SUBJECTIVE: Mr. Kingsley is doing better. He has less shortness of breath today. His creatinine is stable at 2.6. OBJECTIVE: GENERAL: Patient is a pleasant male, who is in no acute distress. The patient appears their stated age. VITAL SIGNS: Blood pressure 108/59, pulse 85, temperature 98. NEUROLOGIC: The patient is alert and oriented x3 with no focal neurologic deficits. HEENT: Sclerae without icterus. Mouth has moist mucous membranes with normal pallor. NECK: No JVD. Carotid upstroke brisk. No bruits bilaterally. LUNGS: Clear to auscultation with unlabored respirations. BACK: No scoliosis or kyphosis. CARDIAC: Regular rate and rhythm with normal S1 and S2. No S3 or S4 noted. No significant rubs, murmurs, thrills, or gallops noted throughout the precordium. PMI is not displaced. There is no parasternal heave. ABDOMEN: Soft, nontender, nondistended. No peritoneal signs present. No hepatosplenomegaly. No abnormal striae. EXTREMITIES: 2+ femoral and 2+ dorsalis pedis pulses. No cyanosis, clubbing, or edema. SKIN: No gross abnormalities. PERTINENT LABORATORY DATA: Creatinine 2.6. IMPRESSION: 1. Cardiomyopathy. 2. Recent pneumonia. 3. Coronary artery disease. RECOMMENDATIONS: Mr. Kingsley has no cardiac ischemia at present. We will treat aggressively for heart failure. We would not proceed with coronary angiography unless he develops symptoms that would warrant angiography. There is a risk of contrast nephropathy given his low GFR and elevated creatinine. The patient understands the risks and agrees. At this point, we would continue with low-dose aspirin and carvedilol in addition to isosorbide. We will follow up with Mr. Kingsley in 1 week. Job ID: [id number]
[2019-12-21 17:27] VITALS: BP 109/61; TEMP 98.2
== END 2019-12-21 17:05 | disposition home or self-care (01) ==
LOC: 2NO 04:46 → INTOOBSV 04:46 → 2SW 10:04 → 2NO 12-17 20:35
PROVIDERS: ADMIT Internal Medicine; ATTEND Internal Medicine
DX: I13.0 Hypertensive heart and chronic kidney disease with heart failure and stage 1 through stage 4 chronic kidney disease, or unspecified chronic kidney disease (principal); E11.22 Type 2 diabetes mellitus with diabetic chronic kidney disease; N18.3 Chronic kidney disease, stage 3 (moderate); I50.23 Acute on chronic systolic (congestive) heart failure; N17.9 Acute kidney failure, unspecified; D63.1 Anemia in chronic kidney disease; I42.8 Other cardiomyopathies; I25.2 Old myocardial infarction; E11.40 Type 2 diabetes mellitus with diabetic neuropathy, unspecified; J44.9 Chronic obstructive pulmonary disease, unspecified; I08.1 Rheumatic disorders of both mitral and tricuspid valves; E87.70 Fluid overload, unspecified; E11.65 Type 2 diabetes mellitus with hyperglycemia; I25.10 Atherosclerotic heart disease of native coronary artery without angina pectoris; R06.02 Shortness of breath; Z20.828 Contact with and (suspected) exposure to other viral communicable diseases; Z79.82 Long term (current) use of aspirin; Z79.84 Long term (current) use of oral hypoglycemic drugs; Z79.899 Other long term (current) drug therapy
CPT/HCPCS: 71045; 76770; 78452; 80048 ×3; 80069; 81001; 82570; 82805; 82962 ×6; 84156; 84300; 84484; 84540; 85025 ×3; 93017; 93306; 93798 ×2; 96374; 96376 ×2; A9500; G0378 ×6; U0003; 36415; 36416; 87635; J1940; J2785

== ENCOUNTER 2020-01-11 01:07 | Observation (INO) | payer MEDICARE, MEDICAID ==
[2020-01-11 01:34] LABS: #Basophils 0.1 thou/uL (0.0-0.2); #Eosinphils 0.3 thou/uL (0.0-0.7); #Lymphocytes 2.1 thou/uL (1.20-3.40); #Monocytes 0.9 thou/uL (0.11-0.59); #Neutrophils 5.1 thou/uL (1.40-6.50); %Basophils 0.8 % (0.0-1.0); %Eosinophils 3.1 % (0.0-10.0); %Lymphocytes 24.9 % (21.0-51.0); %Monocytes 10.5 % (0.0-10.0); %Neutrophils 60.7 % (42.0-75.0); Hemoglobin 10.1 g/dL (14.0-18.0); Mean Corpuscular HGB CONC 33.5 g/dL (32.0-36.0); Mean Corpuscular Volume 95.6 fL (78.0-98.0); Mean Platelet Volume 8.3 fL (7.4-10.4); Platelet Count 167 thou/uL (130-400); RBC Distribution Width 12.1 % (11.5-14.5); Red Blood Cell (RBC) Count 3.16 mill/uL (4.70-6.10); White Blood Cell (WBC) Count 8.4 thou/uL (4.8-10.8)
[2020-01-11 02:12] LABS: ALT (SGPT) 11 U/L (8-55); AST (SGOT) 16 U/L (5-34); Albumin 3.8 g/dL (3.4-4.8); Alkaline Phosphatase 69 U/L (40-110); Anion Gap 13 mmol/L (10-20); BUN (Urea Nitrogen) 32 mg/dL (8.4-25.7); Bilirubin, Total 0.3 mg/dL (0.2-1.2); Calc. Creatinine Clearance 0 mL/min (70-130); Calcium 8.7 mg/dL (7.8-10.44); Carbon Dioxide 26 mmol/L (23-31); Chloride 106 mmol/L (98-107); Estimated GFR-MDRD 23; Globulin 3.4 g/dL (2.4-3.5); Glucose 190 mg/dL (80-115); Potassium 4.3 mmol/L (3.5-5.1); Protein, Total 7.2 g/dL (5.8-8.1); Sodium 141 mmol/L (136-145)
[2020-01-11 05:09] LABS: Troponin I 0.033 ng/mL (< 0.028)
--- NOTE | 2020-01-11 07:41 | RAD ---
EXAM: Single view of the chest HISTORY: Chest pain COMPARISON: 12/16/2019 FINDINGS: Single view of the chest shows a normal sized cardiomediastinal silhouette. This exam is l imited secondary to multiple overlying monitors. There is no evidence of consolidation, mass, or pleural effusion. The bones are unremarkable IMPRESSION: No evidence of acute cardiopulmonary disease
[2020-01-11 08:05] LABS: Troponin I 0.044 ng/mL (< 0.028)
--- NOTE | 2020-01-11 12:44 | SS ---
DATE OF ADMISSION: 01/11/2020 DATE OF DISCHARGE: 01/11/2020 HOSPITAL COURSE: Mr. Kingsley is a 64-year-old male with a medical history of type 2 diabetes, hypertension, COPD, diabetic nephropathy, and CKD stage 3, who presented with acute chest pain. Yesterday, he was at his normal state, when at 11 p.m., he woke up with substernal stabbing pain associated with shortness of breath that lasted 10 minutes. He called the EMS because he thought that his LifeVest shocked him. The EMS gave him nitroglycerin, which improved the chest pain. In the ED, the 1st troponin was found to be negative, and the two following troponins were indeterminate and stable. EKG showed nonspecific T-wave inversions, but otherwise no acute ischemic signs. Of note, the patient was recently discharged less than a month ago after experiencing chest pain and shortness of breath. At that time, he had a stress test on the 18 of December that was negative. The patient was diagnosed this time with noncardiac chest pain. At the time of discharge, he was hemodynamically stable and had no complaints. He also endorsed that he has an upcoming appointment with his quality control auditor the day after presentation. His medications were modified, namely his isosorbide was increased from 30 to 60, and his Coreg was increased from 3.125 to 6.25 pending his appointment with his quality control auditor. Of note, the LifeVest data was downloaded, and based on the data, the LifeVest did not shock the patient. PHYSICAL EXAMINATION: VITAL SIGNS: Blood pressure was 146/83, pulse 80, respiratory rate 17, oxygen saturation 98% on room air, and temperature 98.0. GENERAL: Lying comfortably in bed. Awake and alert. HEENT: Normocephalic and atraumatic. EOMI. PERRL. CARDIAC: Regular rate and rhythm. No murmurs, gallops, or rubs, no JVD, no hepatojugular reflex. LifeVest in place. LUNGS: Clear to auscultation bilaterally. No wheezing, rales, or rhonchi. ABDOMEN: Soft, nontender, nondistended. Normal bowel sounds. EXTREMITIES: No edema. PSYCHIATRIC: Proper mood and affect. Alert and oriented x3. MEDICATION LIST: New medications: Nitroglycerin 0.4 mg sublingual q.5 minutes for substernal pressure-like chest pain. Modified medications: Coreg was increased from 3.125 to 6.25. Lasix was changed from 20 mg daily scheduled to p.r.n. swelling in the lower extremities, and isosorbide mononitrate was changed from 30 mg to 60 mg daily. Discontinued medications: No discontinued medications. Job ID: [id number]
== END 2020-01-11 09:54 | disposition short-term general hospital (02) ==
LOC: ERS 01:07 → ERHOLD 03:56
PROVIDERS: ADMIT Family Medicine; ATTEND Family Medicine
DX: R07.2 Precordial pain (principal); M79.89 Other specified soft tissue disorders; I13.0 Hypertensive heart and chronic kidney disease with heart failure and stage 1 through stage 4 chronic kidney disease, or unspecified chronic kidney disease; E11.21 Type 2 diabetes mellitus with diabetic nephropathy; E11.22 Type 2 diabetes mellitus with diabetic chronic kidney disease; N18.3 Chronic kidney disease, stage 3 (moderate); I50.9 Heart failure, unspecified; J44.9 Chronic obstructive pulmonary disease, unspecified; E11.40 Type 2 diabetes mellitus with diabetic neuropathy, unspecified; Z79.82 Long term (current) use of aspirin; Z79.84 Long term (current) use of oral hypoglycemic drugs; Z79.899 Other long term (current) drug therapy
CPT/HCPCS: 36415; 71045; 80053; 83880; 84484; 85025; 93005; G0378